=== PATIENT | female | born 1965 | race Caucasian/White ===

== ENCOUNTER 2019-02-21 15:00 | Inpatient (IN) ==
[2019-02-21] MEDS ORDERED: SODIUM CHLORIDE 0.9% 4,100 ML IV ONE (15:33)
[2019-02-21] MEDS ORDERED: ALBUTEROL NEB SOLN 5 MG/ML 20 ML/BOTTLE CONT NEB STA (15:34)
[2019-02-21 15:47] LABS: Basophils % 0.1 % (0.0-0.8); Hematocrit 47.4 VOL% (35.7-47.0); Hemoglobin 15.7 GM/DL (12.0-16.0); Immature Granulocytes % 2.1 %; Immature Granulocytes Absolute 0.58 #; Lymphocytes # 1.5 10*3/uL (1.4-4.0); Lymphocytes % 5.5 % (21.3-54.2); Mean Corpuscular HGB Conc 33.1 GM/DL (32-36); Mean Corpuscular Volume 92.9 FL (87-102); Mean Platelet Volume 10.3 FL (9.6-12.0); Monocytes % 3.4 % (1.7-12.7); NRBC # 0.03 10*3/uL; Neutrophils % 88.9 % (38.7-73.9); Platelet Count 162 T/CUMM (130-400); Red Cell Distribution Width 13.6 % (9.3-17.3); White Blood Count 27.4 T/CUMM (4-12)
[2019-02-21] MEDS ORDERED: PROPOFOL 1,000 MG/100 ML BOTTLE IV ONE (15:52)
[2019-02-21 15:55] LABS: PT Patient Result 10.6 SECS; Partial Thromboplastin Time 28.2 SECS (0-40)
[2019-02-21] MEDS: PROPOFOL 1,000 MG/100 ML BOTTLE IV SCH ×3 (16:00→22:05)
[2019-02-21] MEDS ORDERED: ACETAMINOPHEN 650 MG SUPP RECTAL STA (16:00)
[2019-02-21 16:06] LABS: Alanine Aminotransferase 21 U/L (13-56); Albumin 2.4 G/DL (3.4-5.0); Alkaline Phosphatase 102 U/L (45-117); Aspartate Amino Transferase 21 U/L (0-37); Blood Urea Nitrogen 15 MG/DL (7-18); Calcium 8.8 MG/DL (8.5-10.1); Glucose 330 MG/DL (74-106); Total Protein 6.9 G/DL (6.4-8.3)
[2019-02-21] MEDS ORDERED: methylPREDNISolone SOD SUC 125 MG/2 ML VIAL IV STA (16:14)
[2019-02-21] MEDS ORDERED: VANCOMYCIN INJ 1,000 MG in SODIUM CHLORIDE 0.9% 250 ML IV STA (16:14)
[2019-02-21 16:28] LABS: Band Neutrophils 7 % (0-10); Eosinophils 2 % (0-10); Lymphocytes 7 % (20-55); Segmented Neutrophils 81 % (50-85)
[2019-02-21 16:29] LABS: Hypersegmented Neutrophil SLIGHT; Tear Drop Cells Slight
[2019-02-21 16:30] LABS: Platelet Estimate Decreased; Total Cells Counted 100
[2019-02-21] MEDS ORDERED: VECURONIUM 10 MG VIAL IV ONE (16:35)
[2019-02-21] MEDS ORDERED: ETOMIDATE 20 MG/10 ML VIAL IV ONE (16:35)
[2019-02-21] MEDS ORDERED: MIDAZOLAM 10 MG/2 ML VIAL ONE ×2 (16:39→17:39)
[2019-02-21] MEDS ORDERED: MIDAZOLAM 10 MG/2 ML VIAL IV STA ×2 (16:40→17:41)
[2019-02-21 16:43] LABS: ABG Base Excess -5.5 MMOL/L (-2.5-2.5); ABG HCO3 19.8 MMOL/L (20-26); ABG Oxygen Saturation 91.2 % (95-100); ABG PCO2 45.2 MM HG (35-48); ABG PH 7.286 (7.35-7.45); ABG PO2 72.5 MM HG (80-95); ABG TCO2 18.5 MMOL/L (23-27)
[2019-02-21 16:46] LABS: Apearance,Urine Slightly Hazy (Clear); Bilirubin,Urine Negative (Negative); Blood, Urine Small mg/dL (Negative); Glucose,Urine (UA) >=500 mg/dL (Negative); Ketones,Urine 20 mg/dL (Negative); Nitrite,Urine Negative (Negative); Protein,Urine >=500 MG/DL; RBC,Urine 1 /HPF (0-4); Squamous Epithelial Cell,Urine Occasional /HPF (0-10); Urine Color Yellow (Yellow); Urine Specific Gravity 1.033 (1.001-1.035); Urine Urobilinogen < 2.0 EU/DL (0.2-1.0); WBC,Urine 1 /HPF (0-6)
[2019-02-21 16:53] LABS: Barbiturates Screen,Urine Negative (Negative); Benzodiazepines Screen,Urine Negative (Negative); Cannabinoid Screen,Urine Negative (Negative); Opiate Screen,Urine Negative (Negative); Phencyclidine Screen,Urine Negative (Negative)
[2019-02-21] MEDS ORDERED: ONDANSETRON 4 MG/2 ML VIAL IV PRN (17:11)
[2019-02-21] MEDS ORDERED: DEXTROSE 50% 25 GM/50 ML VIAL IV PRN (17:17)
[2019-02-21] MEDS ORDERED: GLUCAGON 1 MG VIAL IM PRN (17:17)
[2019-02-21] MEDS ORDERED: POTASSIUM CHLORIDE RIDER 10 MEQ in PREMIX 1 EACH IV PRN (17:21)
[2019-02-21] MEDS ORDERED: ALBUTEROL 1.25 MG/3 ML NEB RESP TX PRN (17:26)
[2019-02-21] MEDS: PIPERACILLIN/TAZOBACTAM 3,375 MG in SODIUM CHLORIDE 0.9% 100 ML IV SCH ×2 (17:54→23:45)
[2019-02-21] MEDS: MIDAZOLAM 100 MG in SODIUM CHLORIDE 0.9% 80 ML IV PRN (18:01)
[2019-02-21] MEDS: ALBUTEROL/IPRATROPIUM 3 ML NEB RESP TX SCH (19:35)
[2019-02-21] MEDS: LEVOFLOXACIN INJ 750 MG in PREMIX 1 EACH IV SCH (19:50)
[2019-02-21] MEDS: carBAMazepine 200 MG TABLET PER TUBE SCH (20:22)
[2019-02-21] MEDS: methylPREDNISolone SOD SUC 125 MG/2 ML VIAL IV SCH ×2 (20:25→23:44)
[2019-02-21] MEDS: ENOXAPARIN 40 MG/0.4 ML SYRINGE SUBCUT SCH (20:25)
[2019-02-21 20:28] LABS: ABG Oxygen Saturation 93.4 % (95-100); ABG PCO2 35.5 MM HG (35-48); ABG PH 7.304 (7.35-7.45); ABG PO2 78.1 MM HG (80-95); ABG TCO2 15.5 MMOL/L (23-27); Allen Test Positive; Pt O2 Delivery Device Ventilator
[2019-02-21] MEDS: INSULIN REGULAR 100 UNIT/ML SUBCUT SCH ×2 (20:32→23:45)
[2019-02-21] MEDS: POTASSIUM CHLORIDE RIDER 10 MEQ in PREMIX 1 EACH IV SCH ×3 (20:40→23:11)
[2019-02-21] MEDS ORDERED: carBAMazepine CHEW 100 MG TABLET PO SCH (21:00)
[2019-02-21] MEDS ORDERED: NOREPINEPHRINE 8 MG in SODIUM CHLORIDE 0.9% 242 ML IV PRN (21:49)
[2019-02-22] MEDS: ALBUTEROL/IPRATROPIUM 3 ML NEB RESP TX SCH ×4 (00:05→19:24)
[2019-02-22] MEDS: POTASSIUM CHLORIDE RIDER 10 MEQ in PREMIX 1 EACH IV SCH (00:12)
[2019-02-22] MEDS: PROPOFOL 1,000 MG/100 ML BOTTLE IV SCH ×8 (00:27→22:34)
[2019-02-22] MEDS: SODIUM CHLORIDE 0.9% 1,000 ML IV SCH ×3 (00:28→20:04)
[2019-02-22 04:51] LABS: ABG Base Excess -6.2 MMOL/L (-2.5-2.5); ABG HCO3 17.7 MMOL/L (20-26); ABG PCO2 30.7 MM HG (35-48); ABG PH 7.379 (7.35-7.45); ABG PO2 85.2 MM HG (80-95); ABG TCO2 18.7 MMOL/L (23-27); Allen Test Positive; Pt O2 Delivery Device Ventilator
[2019-02-22 05:06] LABS: Basophils # 0.2 10*3/uL (0.0-0.2); Basophils % 0.5 % (0.0-0.8); Hematocrit 40.3 VOL% (35.7-47.0); Hemoglobin 12.8 GM/DL (12.0-16.0); Immature Granulocytes % 3.3 %; Immature Granulocytes Absolute 1.09 #; Lymphocytes # 2.5 10*3/uL (1.4-4.0); Lymphocytes % 7.4 % (21.3-54.2); Mean Corpuscular HGB Conc 31.8 GM/DL (32-36); Mean Corpuscular Volume 96.9 FL (87-102); Mean Platelet Volume 10.7 FL (9.6-12.0); Monocytes % 2.4 % (1.7-12.7); NRBC # 0.03 10*3/uL; Neutrophils % 86.4 % (38.7-73.9); Platelet Count 171 T/CUMM (130-400); Red Blood Count 4.16 MC/CUMM (3.8-5.5); Red Cell Distribution Width 14.3 % (9.3-17.3); White Blood Count 33.2 T/CUMM (4-12)
[2019-02-22 05:36] LABS: Calcium 7.9 MG/DL (8.5-10.1); Osmolality,Calculated 294.5 MOS/KG (273-304)
[2019-02-22 05:55] LABS: Band Neutrophils 7 % (0-10); Lymphocytes 8 % (20-55); Segmented Neutrophils 82 % (50-85); Total Cells Counted 100
[2019-02-22 05:56] LABS: Anisocytosis 1+; Platelet Estimate Adequate
[2019-02-22] MEDS: INSULIN REGULAR 100 UNIT/ML SUBCUT SCH ×3 (06:27→18:40)
[2019-02-22] MEDS: methylPREDNISolone SOD SUC 125 MG/2 ML VIAL IV SCH ×3 (06:27→17:17)
[2019-02-22] MEDS: LEVOTHYROXINE 100 MCG VIAL IV SCH (06:28)
[2019-02-22] MEDS: MIDAZOLAM 100 MG in SODIUM CHLORIDE 0.9% 80 ML IV PRN (09:41)
[2019-02-22] MEDS: PIPERACILLIN/TAZOBACTAM 3,375 MG in SODIUM CHLORIDE 0.9% 100 ML IV SCH ×2 (11:19→18:40)
[2019-02-22] MEDS: carBAMazepine 200 MG TABLET PER TUBE SCH ×4 (11:20→21:35)
[2019-02-22] MEDS: PANTOPRAZOLE 40 MG VIAL IV SCH (11:21)
[2019-02-22] MEDS: ENOXAPARIN 40 MG/0.4 ML SYRINGE SUBCUT SCH (17:16)
[2019-02-22] MEDS: LEVOFLOXACIN INJ 750 MG in PREMIX 1 EACH IV SCH (17:16)
[2019-02-23] MEDS: PIPERACILLIN/TAZOBACTAM 3,375 MG in SODIUM CHLORIDE 0.9% 100 ML IV SCH ×2 (00:32→09:49)
[2019-02-23] MEDS: methylPREDNISolone SOD SUC 125 MG/2 ML VIAL IV SCH ×5 (00:32→23:37)
[2019-02-23] MEDS: INSULIN REGULAR 100 UNIT/ML SUBCUT SCH ×5 (00:32→23:38)
[2019-02-23] MEDS: SODIUM CHLORIDE 0.9% 1,000 ML IV SCH ×2 (00:33→12:01)
[2019-02-23] MEDS: ALBUTEROL/IPRATROPIUM 3 ML NEB RESP TX SCH ×4 (01:23→19:08)
[2019-02-23] MEDS: ACETAMINOPHEN 325 MG TABLET PO PRN (02:15)
[2019-02-23] MEDS: PROPOFOL 1,000 MG/100 ML BOTTLE IV SCH ×6 (03:48→22:18)
[2019-02-23 04:30] LABS: Allen Test Positive; Pt O2 Delivery Device Ventilator
[2019-02-23 04:31] LABS: ABG Base Excess -9.2 MMOL/L (-2.5-2.5); ABG HCO3 17.1 MMOL/L (20-26); ABG Oxygen Saturation 99.5 % (95-100); ABG PCO2 30.3 MM HG (35-48); ABG PH 7.325 (7.35-7.45); ABG TCO2 14.2 MMOL/L (23-27)
[2019-02-23] MEDS: LEVOTHYROXINE 100 MCG VIAL IV SCH (06:51)
[2019-02-23] MEDS: MIDAZOLAM 100 MG in SODIUM CHLORIDE 0.9% 80 ML IV PRN (06:52)
[2019-02-23 09:29] LABS: Calcium 7.2 MG/DL (8.5-10.1); Osmolality,Calculated 299.7 MOS/KG (273-304)
[2019-02-23] MEDS: carBAMazepine 200 MG TABLET PER TUBE SCH ×4 (09:49→20:34)
[2019-02-23] MEDS: PANTOPRAZOLE 40 MG VIAL IV SCH (09:49)
[2019-02-23] MEDS: INSULIN GLARGINE 100 UNIT/ML SUBCUT SCH (09:49)
[2019-02-23] MEDS: MEROPENEM 500 MG in SODIUM CHLORIDE 0.9% 100 ML IV SCH ×2 (11:02→23:37)
[2019-02-23] MEDS ORDERED: SODIUM POLYSTYRENE SULFATE 15 GM/60 ML BOTTLE PER TUBE ONE (11:42)
[2019-02-23] MEDS ORDERED: SODIUM BICARBONATE 50 MEQ/50 ML VIAL IV ONE (15:47)
[2019-02-23] MEDS: SODIUM BICARB INJ 50 MEQ in SODIUM CHLORIDE 0.45% 1,000 ML IV SCH (17:30)
[2019-02-23] MEDS: ENOXAPARIN 40 MG/0.4 ML SYRINGE SUBCUT SCH (17:31)
[2019-02-23] MEDS ORDERED: PIPERACILLIN/TAZOBACTAM 3,375 MG in SODIUM CHLORIDE 0.9% 100 ML IV SCH (20:00)
[2019-02-24] MEDS: ALBUTEROL/IPRATROPIUM 3 ML NEB RESP TX SCH ×4 (00:39→18:49)
[2019-02-24] MEDS: SODIUM BICARB INJ 50 MEQ in SODIUM CHLORIDE 0.45% 1,000 ML IV SCH ×2 (01:42→13:16)
[2019-02-24] MEDS: PROPOFOL 1,000 MG/100 ML BOTTLE IV SCH ×7 (01:44→23:51)
[2019-02-24] MEDS: MIDAZOLAM 100 MG in SODIUM CHLORIDE 0.9% 80 ML IV PRN ×2 (02:01→20:45)
[2019-02-24 03:34] LABS: Allen Test Positive; Pt O2 Delivery Device Ventilator
[2019-02-24 03:43] LABS: ABG Base Excess -11.9 MMOL/L (-2.5-2.5); ABG HCO3 15.2 MMOL/L (20-26); ABG Oxygen Saturation 98.6 % (95-100); ABG PCO2 29.8 MM HG (35-48); ABG PH 7.277 (7.35-7.45); ABG TCO2 12.6 MMOL/L (23-27)
[2019-02-24] MEDS: methylPREDNISolone SOD SUC 125 MG/2 ML VIAL IV SCH ×4 (05:20→23:28)
[2019-02-24] MEDS: INSULIN REGULAR 100 UNIT/ML SUBCUT SCH ×4 (05:25→23:33)
[2019-02-24 05:27] LABS: Calcium 6.3 MG/DL (8.5-10.1); Osmolality,Calculated 310.5 MOS/KG (273-304)
[2019-02-24] MEDS: LEVOTHYROXINE 100 MCG VIAL IV SCH (05:30)
[2019-02-24] MEDS: PANTOPRAZOLE 40 MG VIAL IV SCH (09:26)
[2019-02-24] MEDS: carBAMazepine 200 MG TABLET PER TUBE SCH ×4 (09:27→20:36)
[2019-02-24] MEDS: INSULIN GLARGINE 100 UNIT/ML SUBCUT SCH (09:27)
[2019-02-24 09:52] LABS: Hepatitis B Core IgM Quant 0.05 Index; Hepatitis B Surface Ag Quant < 0.10 Index; Hepatitis B Surface Ag Result Negative (Negative); Hepatitis C Virus Ab Quant 0.05 Index; Hepatitis C Virus Ab Result Negative (Negative)
[2019-02-24] MEDS ORDERED: HEPARIN 10,000 UNIT/10 ML VIAL IV SCH (12:30)
[2019-02-24] MEDS: ENOXAPARIN 30 MG/0.3 ML SYRINGE SUBCUT SCH (17:38)
[2019-02-24] MEDS: FLUCONAZOLE INJ 200 MG in PREMIX 1 EACH IV SCH (17:39)
[2019-02-24] MEDS: LEVOFLOXACIN INJ 750 MG in PREMIX 1 EACH IV SCH (17:39)
[2019-02-24] MEDS: MEROPENEM 500 MG in SODIUM CHLORIDE 0.9% 100 ML IV SCH (23:30)
[2019-02-25] MEDS: ALBUTEROL/IPRATROPIUM 3 ML NEB RESP TX SCH ×4 (01:04→20:55)
[2019-02-25 02:43] LABS: ABG Base Excess -8.6 MMOL/L (-2.5-2.5); ABG HCO3 17.5 MMOL/L (20-26); ABG Oxygen Saturation 93.8 % (95-100); ABG PCO2 30.7 MM HG (35-48); ABG PH 7.332 (7.35-7.45); ABG PO2 81.2 MM HG (80-95); ABG TCO2 14.6 MMOL/L (23-27); Allen Test Positive; Pt O2 Delivery Device Ventilator
[2019-02-25] MEDS: PROPOFOL 1,000 MG/100 ML BOTTLE IV SCH ×7 (03:54→23:45)
[2019-02-25] MEDS: LEVOTHYROXINE 100 MCG VIAL IV SCH (05:57)
[2019-02-25] MEDS: SODIUM BICARB INJ 50 MEQ in SODIUM CHLORIDE 0.45% 1,000 ML IV SCH (05:57)
[2019-02-25] MEDS: INSULIN REGULAR 100 UNIT/ML SUBCUT SCH ×4 (05:57→23:45)
[2019-02-25] MEDS: methylPREDNISolone SOD SUC 125 MG/2 ML VIAL IV SCH ×4 (05:57→23:44)
[2019-02-25 06:17] LABS: Basophils # 0.1 10*3/uL (0.0-0.2); Basophils % 0.4 % (0.0-0.8); Hematocrit 33.8 VOL% (35.7-47.0); Hemoglobin 10.8 GM/DL (12.0-16.0); Immature Granulocytes % 5.8 %; Immature Granulocytes Absolute 0.87 #; Lymphocytes # 1.2 10*3/uL (1.4-4.0); Lymphocytes % 8.3 % (21.3-54.2); Mean Platelet Volume 11.6 FL (9.6-12.0); Monocytes % 4.1 % (1.7-12.7); NRBC # 0.07 10*3/uL; Neutrophils % 81.4 % (38.7-73.9); Platelet Count 168 T/CUMM (130-400); Red Blood Count 3.52 MC/CUMM (3.8-5.5); Red Cell Distribution Width 14.5 % (9.3-17.3); White Blood Count 14.9 T/CUMM (4-12)
[2019-02-25 06:40] LABS: Calcium 6.9 MG/DL (8.5-10.1)
[2019-02-25 06:43] LABS: Band Neutrophils 4 % (0-10); Lymphocytes 10 % (20-55); Metamyelocytes 6 %; Segmented Neutrophils 77 % (50-85); Total Cells Counted 100
[2019-02-25 06:45] LABS: Platelet Estimate Normal; Polychromasia Few
[2019-02-25] MEDS: INSULIN GLARGINE 100 UNIT/ML SUBCUT SCH (08:53)
[2019-02-25] MEDS: carBAMazepine 200 MG TABLET PER TUBE SCH ×4 (08:54→20:15)
[2019-02-25] MEDS: PANTOPRAZOLE 40 MG VIAL IV SCH (08:54)
[2019-02-25] MEDS: MIDAZOLAM 100 MG in SODIUM CHLORIDE 0.9% 80 ML IV PRN (16:30)
[2019-02-25] MEDS: FLUCONAZOLE INJ 200 MG in PREMIX 1 EACH IV SCH (17:44)
[2019-02-25] MEDS: ENOXAPARIN 30 MG/0.3 ML SYRINGE SUBCUT SCH (17:44)
[2019-02-25] MEDS: MEROPENEM 500 MG in SODIUM CHLORIDE 0.9% 100 ML IV SCH (23:44)
[2019-02-26] MEDS: ALBUTEROL/IPRATROPIUM 3 ML NEB RESP TX SCH ×4 (02:26→19:46)
[2019-02-26 03:06] LABS: ABG Base Excess -7.9 MMOL/L (-2.5-2.5); ABG Oxygen Saturation 96.9 % (95-100); ABG PCO2 30.2 MM HG (35-48); ABG PH 7.348 (7.35-7.45); ABG TCO2 14.9 MMOL/L (23-27); Allen Test Positive; Pt O2 Delivery Device Ventilator
[2019-02-26] MEDS: PROPOFOL 1,000 MG/100 ML BOTTLE IV SCH ×5 (03:26→20:40)
[2019-02-26 04:53] LABS: Basophils # 0.1 10*3/uL (0.0-0.2); Basophils % 0.4 % (0.0-0.8); Calcium 6.9 MG/DL (8.5-10.1); Hematocrit 34.4 VOL% (35.7-47.0); Hemoglobin 11.3 GM/DL (12.0-16.0); Immature Granulocytes % 6.5 %; Immature Granulocytes Absolute 1.18 #; Lymphocytes # 0.9 10*3/uL (1.4-4.0); Mean Corpuscular HGB Conc 32.8 GM/DL (32-36); Mean Corpuscular Volume 93.7 FL (87-102); Mean Platelet Volume 11.4 FL (9.6-12.0); NRBC # 0.05 10*3/uL; Neutrophils % 84.1 % (38.7-73.9); Osmolality,Calculated 314.1 MOS/KG (273-304); Platelet Count 218 T/CUMM (130-400); Red Blood Count 3.67 MC/CUMM (3.8-5.5); Red Cell Distribution Width 14.4 % (9.3-17.3); White Blood Count 18.3 T/CUMM (4-12)
[2019-02-26] MEDS: LEVOTHYROXINE 100 MCG VIAL IV SCH (05:47)
[2019-02-26] MEDS: methylPREDNISolone SOD SUC 125 MG/2 ML VIAL IV SCH (05:47)
[2019-02-26] MEDS: INSULIN REGULAR 100 UNIT/ML SUBCUT SCH ×3 (05:47→19:43)
[2019-02-26 05:57] LABS: Band Neutrophils 1 % (0-10); Lymphocytes 3 % (20-55); Platelet Estimate Adequate; Segmented Neutrophils 93 % (50-85); Total Cells Counted 100
[2019-02-26] MEDS: carBAMazepine 200 MG TABLET PER TUBE SCH ×4 (08:44→21:04)
[2019-02-26] MEDS: PANTOPRAZOLE 40 MG VIAL IV SCH (08:44)
[2019-02-26] MEDS: INSULIN GLARGINE 100 UNIT/ML SUBCUT SCH ×2 (08:44→21:04)
[2019-02-26] MEDS: MIDAZOLAM 100 MG in SODIUM CHLORIDE 0.9% 80 ML IV PRN (09:45)
[2019-02-26] MEDS: fentaNYL INJ 1,250 MCG in SODIUM CHLORIDE 0.9% 225 ML IV PRN ×2 (10:45→20:00)
[2019-02-26] MEDS: FLUCONAZOLE INJ 200 MG in PREMIX 1 EACH IV SCH (17:05)
[2019-02-26] MEDS: LEVOFLOXACIN INJ 750 MG in PREMIX 1 EACH IV SCH (17:10)
[2019-02-26] MEDS: ENOXAPARIN 30 MG/0.3 ML SYRINGE SUBCUT SCH (17:15)
[2019-02-26] MEDS: methylPREDNISolone SOD SUC 40 MG/1 ML VIAL IV SCH (19:28)
[2019-02-26] MEDS: MEROPENEM 500 MG in SODIUM CHLORIDE 0.9% 100 ML IV SCH (23:00)
[2019-02-27] MEDS: PROPOFOL 1,000 MG/100 ML BOTTLE IV SCH ×8 (01:00→21:50)
[2019-02-27] MEDS: ALBUTEROL/IPRATROPIUM 3 ML NEB RESP TX SCH ×4 (01:10→19:05)
[2019-02-27 05:08] LABS: ABG PCO2 48.9 MM HG (35-48); ABG PH 7.269 (7.35-7.45)
[2019-02-27 05:09] LABS: ABG Base Excess -5.3 MMOL/L (-2.5-2.5); ABG HCO3 21.9 MMOL/L (20-26); ABG Oxygen Saturation 94.5 % (95-100); ABG PO2 87.9 MM HG (80-95); ABG TCO2 23.4 MMOL/L (23-27)
[2019-02-27] MEDS: methylPREDNISolone SOD SUC 40 MG/1 ML VIAL IV SCH ×2 (05:30→16:45)
[2019-02-27] MEDS: LEVOTHYROXINE 100 MCG VIAL IV SCH (05:32)
[2019-02-27] MEDS: fentaNYL INJ 1,250 MCG in SODIUM CHLORIDE 0.9% 225 ML IV PRN ×2 (05:50→16:09)
[2019-02-27 06:13] LABS: Osmolality,Calculated 300.8 MOS/KG (273-304)
[2019-02-27] MEDS: INSULIN REGULAR 100 UNIT/ML SUBCUT SCH ×4 (06:39→18:07)
[2019-02-27 07:21] LABS: Basophils # 0.1 10*3/uL (0.0-0.2); Basophils % 0.5 % (0.0-0.8); Eosinophils % 0.2 % (0.00-10.9); Hematocrit 34.3 VOL% (35.7-47.0); Immature Granulocytes % 9.1 %; Immature Granulocytes Absolute 1.55 #; Lymphocytes # 1.6 10*3/uL (1.4-4.0); Lymphocytes % 9.2 % (21.3-54.2); Mean Corpuscular HGB Conc 32.1 GM/DL (32-36); Mean Corpuscular Volume 95.8 FL (87-102); Mean Platelet Volume 10.6 FL (9.6-12.0); Monocytes % 5.3 % (1.7-12.7); NRBC # 0.04 10*3/uL; Neutrophils % 75.7 % (38.7-73.9); Platelet Count 301 T/CUMM (130-400); Red Blood Count 3.58 MC/CUMM (3.8-5.5); Red Cell Distribution Width 14.4 % (9.3-17.3)
[2019-02-27 07:51] LABS: Band Neutrophils 1 % (0-10); Lymphocytes 10 % (20-55); Myelocytes 1 %; Nucleated Red Blood Cells 1 (0-5); Platelet Estimate Adequate; Segmented Neutrophils 82 % (50-85); Total Cells Counted 100
[2019-02-27] MEDS: INSULIN GLARGINE 100 UNIT/ML SUBCUT SCH ×2 (08:34→20:56)
[2019-02-27] MEDS: carBAMazepine 200 MG TABLET PER TUBE SCH ×4 (08:34→20:56)
[2019-02-27] MEDS: PANTOPRAZOLE 40 MG VIAL IV SCH (08:35)
[2019-02-27] MEDS: FLUCONAZOLE INJ 200 MG in PREMIX 1 EACH IV SCH (16:45)
[2019-02-27] MEDS: ENOXAPARIN 30 MG/0.3 ML SYRINGE SUBCUT SCH (16:45)
[2019-02-28] MEDS: MEROPENEM 500 MG in SODIUM CHLORIDE 0.9% 100 ML IV SCH ×2 (00:19→22:30)
[2019-02-28] MEDS: INSULIN REGULAR 100 UNIT/ML SUBCUT SCH ×5 (00:37→23:21)
[2019-02-28] MEDS: PROPOFOL 1,000 MG/100 ML BOTTLE IV SCH ×9 (00:54→22:10)
[2019-02-28] MEDS: fentaNYL INJ 1,250 MCG in SODIUM CHLORIDE 0.9% 225 ML IV PRN ×3 (01:17→19:59)
[2019-02-28] MEDS: ALBUTEROL/IPRATROPIUM 3 ML NEB RESP TX SCH ×5 (01:25→20:10)
[2019-02-28 03:54] LABS: ABG Base Excess -3.9 MMOL/L (-2.5-2.5); ABG HCO3 21.1 MMOL/L (20-26); ABG Oxygen Saturation 98.2 % (95-100); ABG PCO2 47.9 MM HG (35-48); ABG PH 7.287 (7.35-7.45); ABG TCO2 20.9 MMOL/L (23-27); Allen Test Positive; Pt O2 Delivery Device Ventilator
[2019-02-28] MEDS: methylPREDNISolone SOD SUC 40 MG/1 ML VIAL IV SCH ×2 (04:50→17:35)
[2019-02-28 05:01] LABS: Basophils # 0.1 10*3/uL (0.0-0.2); Basophils % 0.5 % (0.0-0.8); Eosinophils # 0.1 10*3/uL (0.0-0.87); Eosinophils % 0.5 % (0.00-10.9); Hematocrit 33.9 VOL% (35.7-47.0); Hemoglobin 10.8 GM/DL (12.0-16.0); Immature Granulocytes Absolute 1.66 #; Lymphocytes # 1.7 10*3/uL (1.4-4.0); Lymphocytes % 11.1 % (21.3-54.2); Mean Corpuscular HGB Conc 31.9 GM/DL (32-36); Mean Corpuscular Volume 96.3 FL (87-102); Mean Platelet Volume 9.9 FL (9.6-12.0); Monocytes % 4.4 % (1.7-12.7); NRBC # 0.03 10*3/uL; Neutrophils % 72.5 % (38.7-73.9); Platelet Count 329 T/CUMM (130-400); Red Blood Count 3.52 MC/CUMM (3.8-5.5); Red Cell Distribution Width 14.5 % (9.3-17.3); White Blood Count 15.1 T/CUMM (4-12)
[2019-02-28 05:21] LABS: Calcium 6.8 MG/DL (8.5-10.1)
[2019-02-28 05:22] LABS: Band Neutrophils 1 % (0-10); Lymphocytes 10 % (20-55); Segmented Neutrophils 87 % (50-85); Total Cells Counted 100
[2019-02-28 05:23] LABS: Platelet Estimate Normal; Polychromasia Few
[2019-02-28] MEDS: LEVOTHYROXINE 100 MCG VIAL IV SCH (05:53)
[2019-02-28] MEDS ORDERED: DEXTROSE 50% 25 GM/50 ML SYRINGE IV PRN (08:00)
[2019-02-28] MEDS: INSULIN GLARGINE 100 UNIT/ML SUBCUT SCH ×2 (09:55→20:09)
[2019-02-28] MEDS: PANTOPRAZOLE 40 MG VIAL IV SCH (09:55)
[2019-02-28] MEDS: carBAMazepine 200 MG TABLET PER TUBE SCH ×4 (09:55→20:10)
[2019-02-28] MEDS: FLUCONAZOLE INJ 200 MG in PREMIX 1 EACH IV SCH (16:08)
[2019-02-28] MEDS: LEVOFLOXACIN INJ 750 MG in PREMIX 1 EACH IV SCH (17:35)
[2019-02-28] MEDS: ENOXAPARIN 30 MG/0.3 ML SYRINGE SUBCUT SCH (17:35)
[2019-03-01] MEDS: ALBUTEROL/IPRATROPIUM 3 ML NEB RESP TX SCH ×4 (00:20→19:39)
[2019-03-01] MEDS: fentaNYL INJ 1,250 MCG in SODIUM CHLORIDE 0.9% 225 ML IV PRN ×2 (00:49→05:39)
[2019-03-01] MEDS: PROPOFOL 1,000 MG/100 ML BOTTLE IV SCH ×8 (00:59→21:15)
[2019-03-01 03:12] LABS: Allen Test Positive; Pt O2 Delivery Device Ventilator
[2019-03-01 03:14] LABS: ABG Base Excess -4.2 MMOL/L (-2.5-2.5); ABG HCO3 20.9 MMOL/L (20-26); ABG PCO2 42.8 MM HG (35-48); ABG PH 7.316 (7.35-7.45); ABG TCO2 20.1 MMOL/L (23-27)
[2019-03-01] MEDS: INSULIN REGULAR 100 UNIT/ML SUBCUT SCH ×4 (05:03→23:21)
[2019-03-01] MEDS: LEVOTHYROXINE 100 MCG VIAL IV SCH (05:39)
[2019-03-01] MEDS: methylPREDNISolone SOD SUC 40 MG/1 ML VIAL IV SCH ×2 (05:39→17:42)
[2019-03-01] MEDS: INSULIN GLARGINE 100 UNIT/ML SUBCUT SCH ×2 (09:39→20:02)
[2019-03-01] MEDS: PANTOPRAZOLE 40 MG VIAL IV SCH (09:40)
[2019-03-01] MEDS: carBAMazepine 200 MG TABLET PER TUBE SCH ×4 (09:40→20:02)
[2019-03-01] MEDS: fentaNYL INJ 2,500 MCG in SODIUM CHLORIDE 0.9% 200 ML IV PRN (10:41)
[2019-03-01] MEDS: FLUCONAZOLE INJ 200 MG in PREMIX 1 EACH IV SCH (15:47)
[2019-03-01] MEDS: ENOXAPARIN 30 MG/0.3 ML SYRINGE SUBCUT SCH (17:42)
[2019-03-01] MEDS: MEROPENEM 500 MG in SODIUM CHLORIDE 0.9% 100 ML IV SCH (23:21)
[2019-03-02] MEDS: PROPOFOL 1,000 MG/100 ML BOTTLE IV SCH ×7 (00:01→23:40)
[2019-03-02] MEDS: ALBUTEROL/IPRATROPIUM 3 ML NEB RESP TX SCH ×4 (01:17→19:20)
[2019-03-02 04:10] LABS: ABG Base Excess -8.3 MMOL/L (-2.5-2.5); ABG HCO3 17.9 MMOL/L (20-26); ABG Oxygen Saturation 94.1 % (95-100); ABG PH 7.297 (7.35-7.45); ABG PO2 81.4 MM HG (80-95); ABG TCO2 14.8 MMOL/L (23-27); Allen Test Positive; Pt O2 Delivery Device Ventilator
[2019-03-02 05:28] LABS: Basophils # 0.1 10*3/uL (0.0-0.2); Basophils % 0.4 % (0.0-0.8); Eosinophils % 0.1 % (0.00-10.9); Hematocrit 30.4 VOL% (35.7-47.0); Hemoglobin 9.8 GM/DL (12.0-16.0); Immature Granulocytes % 10.2 %; Immature Granulocytes Absolute 1.63 #; Lymphocytes # 1.3 10*3/uL (1.4-4.0); Lymphocytes % 7.9 % (21.3-54.2); Mean Corpuscular HGB Conc 32.2 GM/DL (32-36); Mean Platelet Volume 9.9 FL (9.6-12.0); Monocytes % 4.1 % (1.7-12.7); Neutrophils % 77.3 % (38.7-73.9); Platelet Count 378 T/CUMM (130-400); Red Cell Distribution Width 14.9 % (9.3-17.3)
[2019-03-02] MEDS: methylPREDNISolone SOD SUC 40 MG/1 ML VIAL IV SCH ×2 (05:30→18:14)
[2019-03-02] MEDS: LEVOTHYROXINE 100 MCG VIAL IV SCH (05:30)
[2019-03-02] MEDS: INSULIN REGULAR 100 UNIT/ML SUBCUT SCH ×4 (05:30→23:40)
[2019-03-02 05:49] LABS: Calcium 6.3 MG/DL (8.5-10.1); Osmolality,Calculated 289.7 MOS/KG (273-304)
[2019-03-02] MEDS: fentaNYL INJ 2,500 MCG in SODIUM CHLORIDE 0.9% 200 ML IV PRN (05:49)
[2019-03-02 06:11] LABS: Band Neutrophils 4 % (0-10); Lymphocytes 8 % (20-55); Metamyelocytes 2 %; Myelocytes 2 %; Segmented Neutrophils 81 % (50-85); Total Cells Counted 100
[2019-03-02 06:12] LABS: Anisocytosis Slight; Microcytosis Slight
[2019-03-02 06:13] LABS: Spherocytes Slight
[2019-03-02 06:14] LABS: Platelet Estimate Normal
[2019-03-02] MEDS: INSULIN GLARGINE 100 UNIT/ML SUBCUT SCH ×2 (09:05→21:25)
[2019-03-02] MEDS: PANTOPRAZOLE 40 MG VIAL IV SCH (09:07)
[2019-03-02] MEDS: carBAMazepine 200 MG TABLET PER TUBE SCH ×4 (09:09→21:25)
[2019-03-02] MEDS: ENOXAPARIN 30 MG/0.3 ML SYRINGE SUBCUT SCH (17:15)
[2019-03-02] MEDS: FLUCONAZOLE INJ 200 MG in PREMIX 1 EACH IV SCH (18:15)
[2019-03-02] MEDS: LEVOFLOXACIN INJ 750 MG in PREMIX 1 EACH IV SCH (18:15)
[2019-03-02] MEDS: MEROPENEM 500 MG in SODIUM CHLORIDE 0.9% 100 ML IV SCH (22:49)
[2019-03-03] MEDS: ALBUTEROL/IPRATROPIUM 3 ML NEB RESP TX SCH ×4 (01:01→19:50)
[2019-03-03] MEDS: fentaNYL INJ 2,500 MCG in SODIUM CHLORIDE 0.9% 200 ML IV PRN ×2 (01:42→21:56)
[2019-03-03] MEDS: PROPOFOL 1,000 MG/100 ML BOTTLE IV SCH ×5 (03:40→21:25)
[2019-03-03 04:16] LABS: ABG Base Excess -2.9 MMOL/L (-2.5-2.5); ABG Oxygen Saturation 97.1 % (95-100); ABG PCO2 37.9 MM HG (35-48); ABG PH 7.372 (7.35-7.45); ABG PO2 98.1 MM HG (80-95); ABG TCO2 20.2 MMOL/L (23-27); Pt O2 Delivery Device Ventilator
[2019-03-03] MEDS: INSULIN REGULAR 100 UNIT/ML SUBCUT SCH ×4 (05:45→23:52)
[2019-03-03] MEDS: methylPREDNISolone SOD SUC 40 MG/1 ML VIAL IV SCH ×2 (05:45→17:30)
[2019-03-03] MEDS: LEVOTHYROXINE 100 MCG VIAL IV SCH (05:48)
[2019-03-03] MEDS: PANTOPRAZOLE 40 MG VIAL IV SCH (08:39)
[2019-03-03] MEDS: carBAMazepine 200 MG TABLET PER TUBE SCH ×4 (08:40→21:55)
[2019-03-03] MEDS: INSULIN GLARGINE 100 UNIT/ML SUBCUT SCH ×2 (08:41→21:44)
[2019-03-03] MEDS: FLUCONAZOLE INJ 200 MG in PREMIX 1 EACH IV SCH (16:30)
[2019-03-03] MEDS: ENOXAPARIN 30 MG/0.3 ML SYRINGE SUBCUT SCH (17:30)
[2019-03-03] MEDS: MEROPENEM 500 MG in SODIUM CHLORIDE 0.9% 100 ML IV SCH (23:53)
[2019-03-04] MEDS: ALBUTEROL/IPRATROPIUM 3 ML NEB RESP TX SCH ×4 (00:20→19:40)
[2019-03-04] MEDS: PROPOFOL 1,000 MG/100 ML BOTTLE IV SCH ×6 (02:29→22:03)
[2019-03-04 04:51] LABS: ABG Base Excess -6.9 MMOL/L (-2.5-2.5); ABG HCO3 18.8 MMOL/L (20-26); ABG Oxygen Saturation 97.3 % (95-100); ABG PCO2 37.7 MM HG (35-48); ABG PH 7.307 (7.35-7.45); ABG TCO2 17.4 MMOL/L (23-27)
[2019-03-04] MEDS: methylPREDNISolone SOD SUC 40 MG/1 ML VIAL IV SCH ×2 (05:26→17:22)
[2019-03-04 05:38] LABS: Basophils # 0.1 10*3/uL (0.0-0.2); Basophils % 0.6 % (0.0-0.8); Hematocrit 28.8 VOL% (35.7-47.0); Hemoglobin 9.3 GM/DL (12.0-16.0); Immature Granulocytes % 7.7 %; Immature Granulocytes Absolute 1.32 #; Lymphocytes # 1.7 10*3/uL (1.4-4.0); Lymphocytes % 9.8 % (21.3-54.2); Mean Corpuscular HGB Conc 32.3 GM/DL (32-36); Mean Platelet Volume 9.3 FL (9.6-12.0); Monocytes % 5.5 % (1.7-12.7); NRBC # 0.02 10*3/uL; Neutrophils % 76.4 % (38.7-73.9); Platelet Count 379 T/CUMM (130-400); Red Blood Count 3.03 MC/CUMM (3.8-5.5); White Blood Count 17.2 T/CUMM (4-12)
[2019-03-04 06:00] LABS: Calcium 6.5 MG/DL (8.5-10.1); Osmolality,Calculated 292.5 MOS/KG (273-304)
[2019-03-04] MEDS: INSULIN REGULAR 100 UNIT/ML SUBCUT SCH ×4 (06:03→23:46)
[2019-03-04 06:14] LABS: Anisocytosis 1+; Band Neutrophils 5 % (0-10); Lymphocytes 11 % (20-55); Myelocytes 3 %; Platelet Estimate Adequate; Segmented Neutrophils 79 % (50-85); Total Cells Counted 100
[2019-03-04] MEDS: LEVOTHYROXINE 100 MCG VIAL IV SCH (06:27)
[2019-03-04] MEDS: PANTOPRAZOLE 40 MG VIAL IV SCH (10:30)
[2019-03-04] MEDS: INSULIN GLARGINE 100 UNIT/ML SUBCUT SCH ×2 (10:30→20:35)
[2019-03-04] MEDS: carBAMazepine 200 MG TABLET PER TUBE SCH ×4 (10:32→20:35)
[2019-03-04] MEDS: PREGABALIN 75 MG CAPSULE NG SCH ×2 (15:20→20:35)
[2019-03-04] MEDS: CYCLOBENZAPRINE 10 MG TABLET PER TUBE SCH ×2 (15:20→20:35)
[2019-03-04] MEDS: oxyCODONE/ACETAMINOPHEN 5-325 MG TABLET PO PRN (15:20)
[2019-03-04] MEDS: DEXMEDETOMIDINE 200 MCG in SODIUM CHLORIDE 0.9% 48 ML IV PRN ×2 (16:20→19:50)
[2019-03-04] MEDS: ENOXAPARIN 30 MG/0.3 ML SYRINGE SUBCUT SCH (17:23)
[2019-03-04] MEDS: SERTRALINE 100 MG TABLET PER TUBE SCH (20:34)
[2019-03-04] MEDS: fentaNYL INJ 2,500 MCG in SODIUM CHLORIDE 0.9% 200 ML IV PRN (22:51)
[2019-03-05] MEDS: ALBUTEROL/IPRATROPIUM 3 ML NEB RESP TX SCH ×4 (00:57→19:38)
[2019-03-05] MEDS: PROPOFOL 1,000 MG/100 ML BOTTLE IV SCH ×6 (01:30→21:05)
[2019-03-05 05:15] LABS: ABG HCO3 17.1 MMOL/L (20-26); ABG Oxygen Saturation 96.7 % (95-100); ABG TCO2 15.6 MMOL/L (23-27); Allen Test Positive; Pt O2 Delivery Device Ventilator
[2019-03-05] MEDS: methylPREDNISolone SOD SUC 40 MG/1 ML VIAL IV SCH ×2 (05:59→17:48)
[2019-03-05] MEDS: INSULIN REGULAR 100 UNIT/ML SUBCUT SCH ×3 (06:00→17:29)
[2019-03-05] MEDS: LEVOTHYROXINE 100 MCG VIAL IV SCH (06:00)
[2019-03-05] MEDS: PREGABALIN 75 MG CAPSULE NG SCH ×3 (09:25→21:44)
[2019-03-05] MEDS: carBAMazepine 200 MG TABLET PER TUBE SCH ×4 (09:25→21:44)
[2019-03-05] MEDS: CYCLOBENZAPRINE 10 MG TABLET PER TUBE SCH ×3 (09:25→21:44)
[2019-03-05] MEDS: INSULIN GLARGINE 100 UNIT/ML SUBCUT SCH ×2 (09:27→21:44)
[2019-03-05] MEDS: PANTOPRAZOLE 40 MG VIAL IV SCH (09:27)
[2019-03-05] MEDS: ENOXAPARIN 30 MG/0.3 ML SYRINGE SUBCUT SCH (17:48)
[2019-03-05] MEDS: fentaNYL INJ 2,500 MCG in SODIUM CHLORIDE 0.9% 200 ML IV PRN (17:49)
[2019-03-05] MEDS: SERTRALINE 100 MG TABLET PER TUBE SCH (21:44)
[2019-03-06] MEDS: PROPOFOL 1,000 MG/100 ML BOTTLE IV SCH ×8 (00:15→22:45)
[2019-03-06] MEDS: ALBUTEROL/IPRATROPIUM 3 ML NEB RESP TX SCH ×4 (00:37→20:35)
[2019-03-06] MEDS: INSULIN REGULAR 100 UNIT/ML SUBCUT SCH ×4 (00:37→17:48)
[2019-03-06 03:49] LABS: ABG Base Excess -1.8 MMOL/L (-2.5-2.5); ABG HCO3 22.9 MMOL/L (20-26); ABG Oxygen Saturation 97.5 % (95-100); ABG PCO2 33.8 MM HG (35-48); ABG PH 7.424 (7.35-7.45); ABG PO2 95.8 MM HG (80-95); ABG TCO2 20.3 MMOL/L (23-27); Allen Test Positive; Pt O2 Delivery Device Ventilator
[2019-03-06 04:25] LABS: Calcium 6.5 MG/DL (8.5-10.1); Osmolality,Calculated 288.1 MOS/KG (273-304)
[2019-03-06] MEDS: methylPREDNISolone SOD SUC 40 MG/1 ML VIAL IV SCH ×2 (05:16→17:47)
[2019-03-06] MEDS: LEVOTHYROXINE 100 MCG VIAL IV SCH (06:24)
[2019-03-06] MEDS: PANTOPRAZOLE 40 MG VIAL IV SCH (09:11)
[2019-03-06] MEDS: INSULIN GLARGINE 100 UNIT/ML SUBCUT SCH ×2 (09:11→20:32)
[2019-03-06] MEDS: CYCLOBENZAPRINE 10 MG TABLET PER TUBE SCH ×3 (09:13→20:32)
[2019-03-06] MEDS: carBAMazepine 200 MG TABLET PER TUBE SCH ×4 (09:13→20:31)
[2019-03-06] MEDS: PREGABALIN 75 MG CAPSULE NG SCH ×3 (09:13→20:32)
[2019-03-06] MEDS: fentaNYL INJ 2,500 MCG in SODIUM CHLORIDE 0.9% 200 ML IV PRN (16:27)
[2019-03-06] MEDS: ENOXAPARIN 30 MG/0.3 ML SYRINGE SUBCUT SCH (17:48)
[2019-03-06] MEDS: SERTRALINE 100 MG TABLET PER TUBE SCH (20:31)
[2019-03-07] MEDS: ALBUTEROL/IPRATROPIUM 3 ML NEB RESP TX SCH ×4 (00:35→20:20)
[2019-03-07] MEDS: INSULIN REGULAR 100 UNIT/ML SUBCUT SCH ×4 (00:48→18:08)
[2019-03-07] MEDS: PROPOFOL 1,000 MG/100 ML BOTTLE IV SCH ×6 (01:58→21:55)
[2019-03-07 03:38] LABS: ABG Base Excess -4.5 MMOL/L (-2.5-2.5); ABG HCO3 19.5 MMOL/L (20-26); ABG PCO2 31.4 MM HG (35-48); ABG TCO2 20.4 MMOL/L (23-27); Allen Test Positive; Pt O2 Delivery Device Ventilator
[2019-03-07 05:06] LABS: Basophils # 0.1 10*3/uL (0.0-0.2); Basophils % 0.5 % (0.0-0.8); Hematocrit 26.3 VOL% (35.7-47.0); Hemoglobin 8.3 GM/DL (12.0-16.0); Immature Granulocytes % 5.3 %; Immature Granulocytes Absolute 0.81 #; Lymphocytes # 1.6 10*3/uL (1.4-4.0); Lymphocytes % 10.6 % (21.3-54.2); Mean Corpuscular HGB Conc 31.6 GM/DL (32-36); Mean Platelet Volume 9.8 FL (9.6-12.0); Monocytes % 4.9 % (1.7-12.7); Neutrophils % 78.7 % (38.7-73.9); Platelet Count 280 T/CUMM (130-400); Red Blood Count 2.74 MC/CUMM (3.8-5.5); Red Cell Distribution Width 15.1 % (9.3-17.3); White Blood Count 15.2 T/CUMM (4-12)
[2019-03-07 05:31] LABS: Calcium 6.4 MG/DL (8.5-10.1); Osmolality,Calculated 289.7 MOS/KG (273-304)
[2019-03-07] MEDS: LEVOTHYROXINE 100 MCG VIAL IV SCH (05:45)
[2019-03-07] MEDS: methylPREDNISolone SOD SUC 40 MG/1 ML VIAL IV SCH ×2 (05:45→17:33)
[2019-03-07 06:48] LABS: Band Neutrophils 1 % (0-10); Eosinophils 1 % (0-10); Lymphocytes 10 % (20-55); Platelet Estimate Adequate; Segmented Neutrophils 84 % (50-85); Total Cells Counted 100
[2019-03-07 06:49] LABS: Hypochromasia 1+; Ovalocytes Slight
[2019-03-07] MEDS: CYCLOBENZAPRINE 10 MG TABLET PER TUBE SCH ×3 (11:15→21:52)
[2019-03-07] MEDS: carBAMazepine 200 MG TABLET PER TUBE SCH ×4 (11:15→21:50)
[2019-03-07] MEDS: PANTOPRAZOLE 40 MG VIAL IV SCH (11:15)
[2019-03-07] MEDS: PREGABALIN 75 MG CAPSULE NG SCH ×3 (11:22→21:50)
[2019-03-07] MEDS: INSULIN GLARGINE 100 UNIT/ML SUBCUT SCH (11:24)
[2019-03-07] MEDS: fentaNYL INJ 2,500 MCG in SODIUM CHLORIDE 0.9% 200 ML IV PRN (16:14)
[2019-03-07] MEDS: ENOXAPARIN 30 MG/0.3 ML SYRINGE SUBCUT SCH (17:27)
[2019-03-07] MEDS: SERTRALINE 100 MG TABLET PER TUBE SCH (21:50)
[2019-03-08] MEDS: INSULIN GLARGINE 100 UNIT/ML SUBCUT SCH ×3 (00:40→21:20)
[2019-03-08] MEDS: INSULIN REGULAR 100 UNIT/ML SUBCUT SCH ×4 (00:49→18:09)
[2019-03-08] MEDS: ALBUTEROL/IPRATROPIUM 3 ML NEB RESP TX SCH ×4 (01:30→19:19)
[2019-03-08] MEDS: PROPOFOL 1,000 MG/100 ML BOTTLE IV SCH ×2 (02:10→07:01)
[2019-03-08 05:17] LABS: ABG Base Excess -1.5 MMOL/L (-2.5-2.5); ABG HCO3 23.1 MMOL/L (20-26); ABG PCO2 37.3 MM HG (35-48); ABG PH 7.397 (7.35-7.45); ABG TCO2 20.9 MMOL/L (23-27); Allen Test Positive; Pt O2 Delivery Device Ventilator
[2019-03-08 05:17] LABS: Osmolality,Calculated 284.1 MOS/KG (273-304)
[2019-03-08] MEDS: methylPREDNISolone SOD SUC 40 MG/1 ML VIAL IV SCH ×2 (06:25→17:32)
[2019-03-08] MEDS: LEVOTHYROXINE 100 MCG VIAL IV SCH (06:33)
[2019-03-08] MEDS: CYCLOBENZAPRINE 10 MG TABLET PER TUBE SCH ×3 (10:18→21:00)
[2019-03-08] MEDS: PREGABALIN 75 MG CAPSULE NG SCH ×3 (10:19→21:00)
[2019-03-08] MEDS: PANTOPRAZOLE 40 MG VIAL IV SCH (10:20)
[2019-03-08] MEDS: carBAMazepine 200 MG TABLET PER TUBE SCH ×4 (10:21→21:00)
[2019-03-08] MEDS: ENOXAPARIN 30 MG/0.3 ML SYRINGE SUBCUT SCH (17:33)
[2019-03-08] MEDS: SERTRALINE 100 MG TABLET PER TUBE SCH (21:01)
[2019-03-09] MEDS: ALBUTEROL/IPRATROPIUM 3 ML NEB RESP TX SCH ×4 (01:00→20:10)
[2019-03-09] MEDS: INSULIN REGULAR 100 UNIT/ML SUBCUT SCH ×4 (01:05→17:08)
[2019-03-09 03:58] LABS: Basophils # 0.1 10*3/uL (0.0-0.2); Basophils % 0.4 % (0.0-0.8); Hematocrit 27.2 VOL% (35.7-47.0); Hemoglobin 8.5 GM/DL (12.0-16.0); Immature Granulocytes % 4.3 %; Immature Granulocytes Absolute 0.89 #; Lymphocytes # 1.3 10*3/uL (1.4-4.0); Lymphocytes % 6.2 % (21.3-54.2); Mean Corpuscular HGB Conc 31.3 GM/DL (32-36); Mean Corpuscular Volume 96.1 FL (87-102); Mean Platelet Volume 9.5 FL (9.6-12.0); Monocytes % 2.8 % (1.7-12.7); Neutrophils % 86.3 % (38.7-73.9); Platelet Count 221 T/CUMM (130-400); Red Blood Count 2.83 MC/CUMM (3.8-5.5); Red Cell Distribution Width 15.1 % (9.3-17.3); White Blood Count 20.8 T/CUMM (4-12)
[2019-03-09 04:08] LABS: ABG Base Excess -4.1 MMOL/L (-2.5-2.5); ABG HCO3 20.2 MMOL/L (20-26); ABG PCO2 33.9 MM HG (35-48); ABG PH 7.393 (7.35-7.45); ABG PO2 73.4 MM HG (80-95); ABG TCO2 21.2 MMOL/L (23-27)
[2019-03-09 04:09] LABS: Allen Test Positive
[2019-03-09 04:14] LABS: Calcium 6.6 MG/DL (8.5-10.1); Osmolality,Calculated 290.1 MOS/KG (273-304)
[2019-03-09 04:53] LABS: Band Neutrophils 2 % (0-10); Hypochromasia Slight; Lymphocytes 5 % (20-55); Platelet Estimate Adequate; Segmented Neutrophils 90 % (50-85); Total Cells Counted 100
[2019-03-09] MEDS: methylPREDNISolone SOD SUC 40 MG/1 ML VIAL IV SCH ×2 (06:27→17:07)
[2019-03-09] MEDS: LEVOTHYROXINE 100 MCG VIAL IV SCH (06:28)
[2019-03-09] MEDS: PREGABALIN 75 MG CAPSULE NG SCH ×3 (09:02→20:18)
[2019-03-09] MEDS: CYCLOBENZAPRINE 10 MG TABLET PER TUBE SCH ×3 (09:02→20:18)
[2019-03-09] MEDS: carBAMazepine 200 MG TABLET PER TUBE SCH ×4 (09:03→20:18)
[2019-03-09] MEDS: INSULIN GLARGINE 100 UNIT/ML SUBCUT SCH ×2 (09:59→20:18)
[2019-03-09] MEDS: PANTOPRAZOLE 40 MG VIAL IV SCH (10:36)
[2019-03-09] MEDS: NYSTATIN 500,000 UNIT/5 ML UDCUP SWISH/SWAL SCH ×3 (15:09→20:18)
[2019-03-09] MEDS: ENOXAPARIN 30 MG/0.3 ML SYRINGE SUBCUT SCH (17:08)
[2019-03-09] MEDS: SERTRALINE 100 MG TABLET PER TUBE SCH (20:18)
[2019-03-09] MEDS: hydrALAZINE 20 MG/1 ML VIAL IV PRN (20:18)
[2019-03-10] MEDS: INSULIN REGULAR 100 UNIT/ML SUBCUT SCH ×4 (00:08→17:50)
[2019-03-10] MEDS: ALBUTEROL/IPRATROPIUM 3 ML NEB RESP TX SCH ×4 (01:24→20:09)
[2019-03-10 04:06] LABS: Basophils # 0.1 10*3/uL (0.0-0.2); Basophils % 0.5 % (0.0-0.8); Hematocrit 27.9 VOL% (35.7-47.0); Hemoglobin 8.8 GM/DL (12.0-16.0); Immature Granulocytes % 3.6 %; Immature Granulocytes Absolute 0.71 #; Lymphocytes # 1.6 10*3/uL (1.4-4.0); Lymphocytes % 7.9 % (21.3-54.2); Mean Corpuscular HGB Conc 31.5 GM/DL (32-36); Mean Corpuscular Volume 95.5 FL (87-102); Mean Platelet Volume 10.3 FL (9.6-12.0); Platelet Count 227 T/CUMM (130-400); Red Blood Count 2.92 MC/CUMM (3.8-5.5); White Blood Count 19.7 T/CUMM (4-12)
[2019-03-10 04:29] LABS: Calcium 7.2 MG/DL (8.5-10.1); Osmolality,Calculated 284.7 MOS/KG (273-304)
[2019-03-10 04:53] LABS: Lymphocytes 14 % (20-55); Platelet Estimate Normal; Segmented Neutrophils 81 % (50-85); Total Cells Counted 100
[2019-03-10] MEDS: oxyCODONE/ACETAMINOPHEN 5-325 MG TABLET PO PRN (05:25)
[2019-03-10] MEDS: LEVOTHYROXINE 100 MCG VIAL IV SCH (05:25)
[2019-03-10] MEDS: methylPREDNISolone SOD SUC 40 MG/1 ML VIAL IV SCH ×2 (05:25→17:48)
[2019-03-10] MEDS: CYCLOBENZAPRINE 10 MG TABLET PER TUBE SCH ×3 (08:18→20:05)
[2019-03-10] MEDS: carBAMazepine 200 MG TABLET PER TUBE SCH (08:19)
[2019-03-10] MEDS: NYSTATIN 500,000 UNIT/5 ML UDCUP SWISH/SWAL SCH ×4 (08:19→20:05)
[2019-03-10] MEDS: PREGABALIN 75 MG CAPSULE NG SCH (08:19)
[2019-03-10] MEDS: INSULIN GLARGINE 100 UNIT/ML SUBCUT SCH ×2 (08:19→20:05)
[2019-03-10] MEDS: PANTOPRAZOLE 40 MG VIAL IV SCH (08:19)
[2019-03-10 11:30] LABS: ABG HCO3 22.7 MMOL/L (20-26); ABG PCO2 35.9 MM HG (35-48); ABG PH 7.401 (7.35-7.45); ABG PO2 85.4 MM HG (80-95); ABG TCO2 20.5 MMOL/L (23-27); Pt O2 Delivery Device Venturi Mask
[2019-03-10] MEDS: carBAMazepine 200 MG TABLET PO SCH ×3 (14:34→20:05)
[2019-03-10] MEDS: PREGABALIN 50 MG CAPSULE PO SCH ×2 (14:35→20:05)
[2019-03-10] MEDS: ENOXAPARIN 30 MG/0.3 ML SYRINGE SUBCUT SCH (17:49)
[2019-03-10] MEDS: SERTRALINE 100 MG TABLET PER TUBE SCH (20:05)
[2019-03-11] MEDS: INSULIN REGULAR 100 UNIT/ML SUBCUT SCH ×5 (00:06→23:35)
[2019-03-11] MEDS: ALBUTEROL/IPRATROPIUM 3 ML NEB RESP TX SCH ×4 (01:36→20:24)
[2019-03-11] MEDS: LEVOTHYROXINE 100 MCG VIAL IV SCH (05:30)
[2019-03-11] MEDS: methylPREDNISolone SOD SUC 40 MG/1 ML VIAL IV SCH ×2 (05:30→17:45)
[2019-03-11 06:15] LABS: Basophils # 0.1 10*3/uL (0.0-0.2); Basophils % 0.7 % (0.0-0.8); Eosinophils % 0.1 % (0.00-10.9); Hematocrit 28.1 VOL% (35.7-47.0); Hemoglobin 8.7 GM/DL (12.0-16.0); Immature Granulocytes Absolute 0.27 #; Lymphocytes # 1.9 10*3/uL (1.4-4.0); Lymphocytes % 13.9 % (21.3-54.2); Mean Corpuscular Volume 97.9 FL (87-102); Mean Platelet Volume 9.6 FL (9.6-12.0); Monocytes % 4.1 % (1.7-12.7); Neutrophils % 79.2 % (38.7-73.9); Platelet Count 227 T/CUMM (130-400); Red Blood Count 2.87 MC/CUMM (3.8-5.5); Red Cell Distribution Width 15.2 % (9.3-17.3); White Blood Count 13.5 T/CUMM (4-12)
[2019-03-11 06:34] LABS: Calcium 7.3 MG/DL (8.5-10.1); Osmolality,Calculated 296.5 MOS/KG (273-304)
[2019-03-11] MEDS: PANTOPRAZOLE 40 MG VIAL IV SCH (09:44)
[2019-03-11] MEDS: PREGABALIN 50 MG CAPSULE PO SCH ×3 (09:44→21:40)
[2019-03-11] MEDS: NYSTATIN 500,000 UNIT/5 ML UDCUP SWISH/SWAL SCH ×4 (09:44→21:40)
[2019-03-11] MEDS: INSULIN GLARGINE 100 UNIT/ML SUBCUT SCH ×2 (09:44→22:19)
[2019-03-11] MEDS: CYCLOBENZAPRINE 10 MG TABLET PER TUBE SCH (09:44)
[2019-03-11] MEDS: carBAMazepine 200 MG TABLET PO SCH ×4 (09:45→21:40)
[2019-03-11] MEDS: ENOXAPARIN 30 MG/0.3 ML SYRINGE SUBCUT SCH (17:45)
[2019-03-11] MEDS: SERTRALINE 100 MG TABLET PER TUBE SCH (21:40)
[2019-03-12] MEDS: ALBUTEROL/IPRATROPIUM 3 ML NEB RESP TX SCH ×4 (00:48→20:01)
[2019-03-12 05:28] LABS: Basophils # 0.1 10*3/uL (0.0-0.2); Basophils % 0.7 % (0.0-0.8); Eosinophils % 0.1 % (0.00-10.9); Hematocrit 28.2 VOL% (35.7-47.0); Hemoglobin 8.6 GM/DL (12.0-16.0); Immature Granulocytes % 1.5 %; Immature Granulocytes Absolute 0.19 #; Lymphocytes # 1.8 10*3/uL (1.4-4.0); Lymphocytes % 14.3 % (21.3-54.2); Mean Corpuscular HGB Conc 30.5 GM/DL (32-36); Mean Corpuscular Volume 97.9 FL (87-102); Mean Platelet Volume 9.6 FL (9.6-12.0); Monocytes % 4.4 % (1.7-12.7); Platelet Count 229 T/CUMM (130-400); Red Blood Count 2.88 MC/CUMM (3.8-5.5); White Blood Count 12.4 T/CUMM (4-12)
[2019-03-12 05:51] LABS: Calcium 7.8 MG/DL (8.5-10.1); Osmolality,Calculated 305.1 MOS/KG (273-304)
[2019-03-12] MEDS: LEVOTHYROXINE 100 MCG VIAL IV SCH (06:11)
[2019-03-12] MEDS: INSULIN REGULAR 100 UNIT/ML SUBCUT SCH ×3 (06:11→18:04)
[2019-03-12] MEDS: methylPREDNISolone SOD SUC 40 MG/1 ML VIAL IV SCH ×2 (06:11→16:09)
[2019-03-12] MEDS: INSULIN GLARGINE 100 UNIT/ML SUBCUT SCH ×2 (08:05→21:00)
[2019-03-12] MEDS: carBAMazepine 200 MG TABLET PO SCH ×4 (08:08→20:52)
[2019-03-12] MEDS: PANTOPRAZOLE 40 MG VIAL IV SCH (08:08)
[2019-03-12] MEDS: PREGABALIN 50 MG CAPSULE PO SCH ×3 (08:08→20:52)
[2019-03-12] MEDS: NYSTATIN 500,000 UNIT/5 ML UDCUP SWISH/SWAL SCH ×4 (08:08→20:52)
[2019-03-12] MEDS: ENOXAPARIN 30 MG/0.3 ML SYRINGE SUBCUT SCH (17:35)
[2019-03-12] MEDS: hydrALAZINE 20 MG/1 ML VIAL IV PRN (20:53)
[2019-03-12] MEDS: SERTRALINE 100 MG TABLET PER TUBE SCH (20:53)
[2019-03-12] MEDS: oxyCODONE/ACETAMINOPHEN 5-325 MG TABLET PO PRN (20:59)
[2019-03-13] MEDS: INSULIN REGULAR 100 UNIT/ML SUBCUT SCH ×4 (00:22→17:41)
[2019-03-13] MEDS: ALBUTEROL/IPRATROPIUM 3 ML NEB RESP TX SCH ×4 (00:51→19:57)
[2019-03-13] MEDS: hydrALAZINE 20 MG/1 ML VIAL IV PRN (03:13)
[2019-03-13] MEDS: methylPREDNISolone SOD SUC 40 MG/1 ML VIAL IV SCH ×2 (04:25→17:09)
[2019-03-13 04:33] LABS: Basophils # 0.1 10*3/uL (0.0-0.2); Eosinophils % 0.1 % (0.00-10.9); Hematocrit 31.7 VOL% (35.7-47.0); Hemoglobin 9.8 GM/DL (12.0-16.0); Immature Granulocytes % 1.5 %; Immature Granulocytes Absolute 0.18 #; Lymphocytes # 1.8 10*3/uL (1.4-4.0); Lymphocytes % 14.4 % (21.3-54.2); Mean Corpuscular HGB Conc 30.9 GM/DL (32-36); Mean Corpuscular Volume 96.9 FL (87-102); Mean Platelet Volume 9.5 FL (9.6-12.0); Monocytes % 5.5 % (1.7-12.7); Neutrophils % 77.5 % (38.7-73.9); Platelet Count 224 T/CUMM (130-400); Red Blood Count 3.27 MC/CUMM (3.8-5.5); Red Cell Distribution Width 14.6 % (9.3-17.3); White Blood Count 12.2 T/CUMM (4-12)
[2019-03-13 04:53] LABS: Calcium 8.3 MG/DL (8.5-10.1); Osmolality,Calculated 295.8 MOS/KG (273-304)
[2019-03-13] MEDS: oxyCODONE/ACETAMINOPHEN 5-325 MG TABLET PO PRN (05:05)
[2019-03-13] MEDS ORDERED: hydrALAZINE 20 MG/1 ML VIAL IV ONE (05:20)
[2019-03-13] MEDS: LEVOTHYROXINE 100 MCG VIAL IV SCH (06:24)
[2019-03-13] MEDS: NYSTATIN 500,000 UNIT/5 ML UDCUP SWISH/SWAL SCH ×4 (08:41→20:34)
[2019-03-13] MEDS: PREGABALIN 50 MG CAPSULE PO SCH ×3 (08:41→20:36)
[2019-03-13] MEDS: carBAMazepine 200 MG TABLET PO SCH ×4 (08:41→20:32)
[2019-03-13] MEDS: PANTOPRAZOLE 40 MG VIAL IV SCH (08:41)
[2019-03-13] MEDS: INSULIN GLARGINE 100 UNIT/ML SUBCUT SCH ×2 (08:41→20:34)
[2019-03-13] MEDS: ENOXAPARIN 30 MG/0.3 ML SYRINGE SUBCUT SCH (17:09)
[2019-03-13] MEDS ORDERED: carBAMazepine 200 MG TABLET PO SCH (19:33)
[2019-03-13] MEDS ORDERED: CETIRIZINE 10 MG TABLET PO PRN (19:33)
[2019-03-13] MEDS: ASPIRIN EC 81 MG TABLET PO SCH (20:32)
[2019-03-13] MEDS: SERTRALINE 100 MG TABLET PO SCH (20:33)
[2019-03-13] MEDS: CYCLOBENZAPRINE 10 MG TABLET PO SCH ×2 (20:34)
[2019-03-13] MEDS: SERTRALINE 100 MG TABLET PER TUBE SCH (20:36)
[2019-03-13] MEDS: PREGABALIN 75 MG CAPSULE PO SCH (21:04)
[2019-03-13] MEDS: SIMVASTATIN 10 MG TABLET PO SCH (21:38)
[2019-03-14] MEDS: INSULIN REGULAR 100 UNIT/ML SUBCUT SCH ×4 (00:25→17:19)
[2019-03-14] MEDS: ALBUTEROL/IPRATROPIUM 3 ML NEB RESP TX SCH ×4 (01:56→20:28)
[2019-03-14] MEDS: hydrALAZINE 20 MG/1 ML VIAL IV PRN (05:10)
[2019-03-14] MEDS: methylPREDNISolone SOD SUC 40 MG/1 ML VIAL IV SCH ×3 (05:21→21:23)
[2019-03-14] MEDS: LEVOTHYROXINE 50 MCG TABLET PO SCH (06:29)
[2019-03-14 08:36] LABS: Calcium 8.4 MG/DL (8.5-10.1); Osmolality,Calculated 300.1 MOS/KG (273-304)
[2019-03-14] MEDS ORDERED: Dapagliflozin [Farxiga] 5 MG PO SCH (09:00)
[2019-03-14] MEDS ORDERED: VALSARTAN/HCTZ 80-12.5 MG TABLET PO SCH (09:00)
[2019-03-14] MEDS: PREGABALIN 75 MG CAPSULE PO SCH ×3 (09:51→21:23)
[2019-03-14] MEDS: CYCLOBENZAPRINE 10 MG TABLET PO SCH ×3 (09:51→21:23)
[2019-03-14] MEDS: PANTOPRAZOLE 40 MG TABLET PO SCH (09:51)
[2019-03-14] MEDS: PREGABALIN 50 MG CAPSULE PO SCH (09:51)
[2019-03-14] MEDS: carBAMazepine 200 MG TABLET PO SCH ×4 (09:52→21:21)
[2019-03-14] MEDS: INSULIN GLARGINE 100 UNIT/ML SUBCUT SCH ×2 (09:52→21:23)
[2019-03-14] MEDS: NYSTATIN 500,000 UNIT/5 ML UDCUP SWISH/SWAL SCH ×4 (09:52→21:22)
[2019-03-14] MEDS: SIMVASTATIN 10 MG TABLET PO SCH (17:38)
[2019-03-14] MEDS: ENOXAPARIN 30 MG/0.3 ML SYRINGE SUBCUT SCH (17:39)
[2019-03-14] MEDS: SERTRALINE 100 MG TABLET PO SCH (21:22)
[2019-03-14] MEDS: ASPIRIN EC 81 MG TABLET PO SCH (21:23)
[2019-03-15] MEDS: ALBUTEROL/IPRATROPIUM 3 ML NEB RESP TX SCH ×4 (01:46→19:45)
[2019-03-15] MEDS: INSULIN REGULAR 100 UNIT/ML SUBCUT SCH ×4 (02:10→18:30)
[2019-03-15 05:45] LABS: Basophils # 0.1 10*3/uL (0.0-0.2); Eosinophils # 0.1 10*3/uL (0.0-0.87); Eosinophils % 1.2 % (0.00-10.9); Hematocrit 30.5 VOL% (35.7-47.0); Hemoglobin 9.3 GM/DL (12.0-16.0); Immature Granulocytes % 0.8 %; Immature Granulocytes Absolute 0.07 #; Lymphocytes # 1.7 10*3/uL (1.4-4.0); Lymphocytes % 19.6 % (21.3-54.2); Mean Corpuscular HGB Conc 30.5 GM/DL (32-36); Mean Corpuscular Volume 98.1 FL (87-102); Mean Platelet Volume 10.3 FL (9.6-12.0); Monocytes % 4.8 % (1.7-12.7); Neutrophils % 72.6 % (38.7-73.9); Platelet Count 228 T/CUMM (130-400); Red Blood Count 3.11 MC/CUMM (3.8-5.5); Red Cell Distribution Width 15.3 % (9.3-17.3); White Blood Count 8.6 T/CUMM (4-12)
[2019-03-15 06:06] LABS: Calcium 8.4 MG/DL (8.5-10.1); Osmolality,Calculated 298.4 MOS/KG (273-304)
[2019-03-15] MEDS: LEVOTHYROXINE 50 MCG TABLET PO SCH (06:29)
[2019-03-15] MEDS: methylPREDNISolone SOD SUC 40 MG/1 ML VIAL IV SCH (09:35)
[2019-03-15] MEDS: NYSTATIN 500,000 UNIT/5 ML UDCUP SWISH/SWAL SCH ×4 (09:36→21:26)
[2019-03-15] MEDS: PREGABALIN 75 MG CAPSULE PO SCH ×3 (09:36→21:25)
[2019-03-15] MEDS: carBAMazepine 200 MG TABLET PO SCH ×4 (09:36→21:25)
[2019-03-15] MEDS: ERGOCALCIFEROL 50,000 UNIT CAPSULE PO SCH (09:36)
[2019-03-15] MEDS: PANTOPRAZOLE 40 MG TABLET PO SCH (09:36)
[2019-03-15] MEDS: oxyCODONE/ACETAMINOPHEN 5-325 MG TABLET PO PRN (09:43)
[2019-03-15] MEDS: CYCLOBENZAPRINE 10 MG TABLET PO SCH ×3 (09:45→21:25)
[2019-03-15] MEDS: INSULIN GLARGINE 100 UNIT/ML SUBCUT SCH ×2 (09:55→21:26)
[2019-03-15] MEDS: SIMVASTATIN 10 MG TABLET PO SCH (16:59)
[2019-03-15] MEDS: TAMSULOSIN 0.4 MG CAPSULE PO SCH (16:59)
[2019-03-15] MEDS: ENOXAPARIN 30 MG/0.3 ML SYRINGE SUBCUT SCH (17:00)
[2019-03-15] MEDS: SERTRALINE 100 MG TABLET PO SCH (21:25)
[2019-03-15] MEDS: ASPIRIN EC 81 MG TABLET PO SCH (21:25)
[2019-03-16] MEDS: INSULIN REGULAR 100 UNIT/ML SUBCUT SCH ×4 (01:11→18:13)
[2019-03-16] MEDS: ALBUTEROL/IPRATROPIUM 3 ML NEB RESP TX SCH ×4 (01:20→19:57)
[2019-03-16 04:43] LABS: Basophils # 0.1 10*3/uL (0.0-0.2); Basophils % 0.8 % (0.0-0.8); Eosinophils # 0.2 10*3/uL (0.0-0.87); Eosinophils % 1.4 % (0.00-10.9); Hematocrit 28.7 VOL% (35.7-47.0); Hemoglobin 8.5 GM/DL (12.0-16.0); Immature Granulocytes % 0.9 %; Lymphocytes # 2.1 10*3/uL (1.4-4.0); Lymphocytes % 19.2 % (21.3-54.2); Mean Corpuscular HGB Conc 29.6 GM/DL (32-36); Mean Corpuscular Volume 99.7 FL (87-102); Mean Platelet Volume 10.3 FL (9.6-12.0); Monocytes % 5.5 % (1.7-12.7); Neutrophils % 72.2 % (38.7-73.9); Platelet Count 203 T/CUMM (130-400); Red Blood Count 2.88 MC/CUMM (3.8-5.5); Red Cell Distribution Width 15.4 % (9.3-17.3); White Blood Count 11.1 T/CUMM (4-12)
[2019-03-16 04:59] LABS: Osmolality,Calculated 301.5 MOS/KG (273-304)
[2019-03-16] MEDS: carBAMazepine 200 MG TABLET PO SCH ×4 (08:53→22:05)
[2019-03-16] MEDS: LEVOTHYROXINE 50 MCG TABLET PO SCH (08:53)
[2019-03-16] MEDS: PREGABALIN 75 MG CAPSULE PO SCH ×3 (08:53→22:05)
[2019-03-16] MEDS: CYCLOBENZAPRINE 10 MG TABLET PO SCH ×3 (08:53→22:07)
[2019-03-16] MEDS: TAMSULOSIN 0.4 MG CAPSULE PO SCH (08:53)
[2019-03-16] MEDS: PANTOPRAZOLE 40 MG TABLET PO SCH (08:53)
[2019-03-16] MEDS: NYSTATIN 500,000 UNIT/5 ML UDCUP SWISH/SWAL SCH ×3 (08:54→16:32)
[2019-03-16] MEDS: INSULIN GLARGINE 100 UNIT/ML SUBCUT SCH ×2 (09:36→22:08)
[2019-03-16] MEDS: oxyCODONE/ACETAMINOPHEN 5-325 MG TABLET PO PRN ×2 (14:32→22:06)
[2019-03-16] MEDS: SIMVASTATIN 10 MG TABLET PO SCH (16:31)
[2019-03-16] MEDS: ENOXAPARIN 30 MG/0.3 ML SYRINGE SUBCUT SCH (16:32)
[2019-03-16] MEDS: SERTRALINE 100 MG TABLET PO SCH (22:07)
[2019-03-16] MEDS: ASPIRIN EC 81 MG TABLET PO SCH (22:07)
[2019-03-17] MEDS: INSULIN REGULAR 100 UNIT/ML SUBCUT SCH ×4 (00:28→18:29)
[2019-03-17] MEDS: ALBUTEROL/IPRATROPIUM 3 ML NEB RESP TX SCH ×4 (02:51→19:11)
[2019-03-17 06:22] LABS: Calcium 8.2 MG/DL (8.5-10.1); Osmolality,Calculated 287.4 MOS/KG (273-304)
[2019-03-17] MEDS: LEVOTHYROXINE 50 MCG TABLET PO SCH (06:22)
[2019-03-17] MEDS: INSULIN GLARGINE 100 UNIT/ML SUBCUT SCH ×2 (08:39→21:40)
[2019-03-17] MEDS: TAMSULOSIN 0.4 MG CAPSULE PO SCH (08:40)
[2019-03-17] MEDS: carBAMazepine 200 MG TABLET PO SCH ×4 (08:40→21:39)
[2019-03-17] MEDS: PREGABALIN 75 MG CAPSULE PO SCH ×3 (08:40→21:39)
[2019-03-17] MEDS: PANTOPRAZOLE 40 MG TABLET PO SCH (08:40)
[2019-03-17] MEDS: CYCLOBENZAPRINE 10 MG TABLET PO SCH ×3 (08:40→21:40)
[2019-03-17] MEDS ORDERED: NICOTINE 21 MG/24 HR PATCH TRANSDERM PRN (11:48)
[2019-03-17] MEDS: SIMVASTATIN 10 MG TABLET PO SCH (17:33)
[2019-03-17] MEDS: ENOXAPARIN 30 MG/0.3 ML SYRINGE SUBCUT SCH (17:33)
[2019-03-17] MEDS: oxyCODONE/ACETAMINOPHEN 5-325 MG TABLET PO PRN (19:40)
[2019-03-17] MEDS: SERTRALINE 100 MG TABLET PO SCH (21:39)
[2019-03-17] MEDS: ASPIRIN EC 81 MG TABLET PO SCH (21:40)
[2019-03-18] MEDS: INSULIN REGULAR 100 UNIT/ML SUBCUT SCH ×4 (00:53→17:45)
[2019-03-18] MEDS: ALBUTEROL/IPRATROPIUM 3 ML NEB RESP TX SCH ×4 (01:56→19:09)
[2019-03-18 03:04] LABS: Basophils # 0.1 10*3/uL (0.0-0.2); Basophils % 0.9 % (0.0-0.8); Eosinophils # 0.3 10*3/uL (0.0-0.87); Hematocrit 29.2 VOL% (35.7-47.0); Immature Granulocytes Absolute 0.09 #; Lymphocytes # 1.3 10*3/uL (1.4-4.0); Mean Corpuscular HGB Conc 30.8 GM/DL (32-36); Mean Corpuscular Volume 99.7 FL (87-102); Mean Platelet Volume 11.1 FL (9.6-12.0); Monocytes % 7.2 % (1.7-12.7); Neutrophils % 72.9 % (38.7-73.9); Platelet Count 231 T/CUMM (130-400); Red Blood Count 2.93 MC/CUMM (3.8-5.5); Red Cell Distribution Width 15.8 % (9.3-17.3); White Blood Count 8.9 T/CUMM (4-12)
[2019-03-18 03:34] LABS: Calcium 8.4 MG/DL (8.5-10.1); Osmolality,Calculated 289.4 MOS/KG (273-304)
[2019-03-18] MEDS: oxyCODONE/ACETAMINOPHEN 5-325 MG TABLET PO PRN ×2 (04:05→20:56)
[2019-03-18] MEDS: PREGABALIN 75 MG CAPSULE PO SCH ×3 (08:20→20:52)
[2019-03-18] MEDS: INSULIN GLARGINE 100 UNIT/ML SUBCUT SCH ×2 (08:20→20:52)
[2019-03-18] MEDS: carBAMazepine 200 MG TABLET PO SCH ×4 (08:21→20:51)
[2019-03-18] MEDS: LEVOTHYROXINE 50 MCG TABLET PO SCH (08:21)
[2019-03-18] MEDS: TAMSULOSIN 0.4 MG CAPSULE PO SCH (08:21)
[2019-03-18] MEDS: CYCLOBENZAPRINE 10 MG TABLET PO SCH ×3 (08:21→20:51)
[2019-03-18] MEDS: PANTOPRAZOLE 40 MG TABLET PO SCH (08:21)
[2019-03-18] MEDS: POLYETHYLENE GLYCOL POWDER 17 GM PACK PO SCH (10:00)
[2019-03-18] MEDS: SIMVASTATIN 10 MG TABLET PO SCH (17:34)
[2019-03-18] MEDS: ENOXAPARIN 30 MG/0.3 ML SYRINGE SUBCUT SCH (17:35)
[2019-03-18] MEDS: ASPIRIN EC 81 MG TABLET PO SCH (20:51)
[2019-03-18] MEDS: SERTRALINE 100 MG TABLET PO SCH (20:51)
[2019-03-19] MEDS: ALBUTEROL/IPRATROPIUM 3 ML NEB RESP TX SCH ×4 (01:01→20:06)
[2019-03-19] MEDS: INSULIN REGULAR 100 UNIT/ML SUBCUT SCH ×3 (01:14→18:08)
[2019-03-19 04:47] LABS: Basophils # 0.1 10*3/uL (0.0-0.2); Basophils % 0.8 % (0.0-0.8); Eosinophils # 0.4 10*3/uL (0.0-0.87); Eosinophils % 4.4 % (0.00-10.9); Hematocrit 30.3 VOL% (35.7-47.0); Immature Granulocytes % 0.9 %; Immature Granulocytes Absolute 0.08 #; Lymphocytes # 1.4 10*3/uL (1.4-4.0); Lymphocytes % 16.2 % (21.3-54.2); Mean Corpuscular HGB Conc 29.7 GM/DL (32-36); Mean Corpuscular Volume 101.7 FL (87-102); Mean Platelet Volume 10.9 FL (9.6-12.0); Monocytes % 6.7 % (1.7-12.7); Platelet Count 268 T/CUMM (130-400); Red Blood Count 2.98 MC/CUMM (3.8-5.5); Red Cell Distribution Width 15.6 % (9.3-17.3); White Blood Count 8.6 T/CUMM (4-12)
[2019-03-19 05:04] LABS: Calcium 8.6 MG/DL (8.5-10.1); Osmolality,Calculated 295.3 MOS/KG (273-304)
[2019-03-19] MEDS: oxyCODONE/ACETAMINOPHEN 5-325 MG TABLET PO PRN (05:28)
[2019-03-19] MEDS: TAMSULOSIN 0.4 MG CAPSULE PO SCH (08:45)
[2019-03-19] MEDS: CYCLOBENZAPRINE 10 MG TABLET PO SCH ×3 (08:56→21:41)
[2019-03-19] MEDS: PANTOPRAZOLE 40 MG TABLET PO SCH (08:56)
[2019-03-19] MEDS: carBAMazepine 200 MG TABLET PO SCH ×4 (08:57→21:41)
[2019-03-19] MEDS: ERGOCALCIFEROL 50,000 UNIT CAPSULE PO SCH (08:57)
[2019-03-19] MEDS: PREGABALIN 75 MG CAPSULE PO SCH ×3 (08:57→21:41)
[2019-03-19] MEDS: POLYETHYLENE GLYCOL POWDER 17 GM PACK PO SCH (08:57)
[2019-03-19] MEDS ORDERED: METHYLNALTREXONE 12 MG/0.6 ML VIAL SUBCUT ONE (12:34)
[2019-03-19] MEDS: INSULIN GLARGINE 100 UNIT/ML SUBCUT SCH ×2 (13:12→21:42)
[2019-03-19] MEDS: SIMVASTATIN 10 MG TABLET PO SCH (18:17)
[2019-03-19] MEDS: ENOXAPARIN 30 MG/0.3 ML SYRINGE SUBCUT SCH (18:17)
[2019-03-19] MEDS: SERTRALINE 100 MG TABLET PO SCH (21:41)
[2019-03-19] MEDS: ASPIRIN EC 81 MG TABLET PO SCH (21:42)
[2019-03-20] MEDS: ALBUTEROL/IPRATROPIUM 3 ML NEB RESP TX SCH ×4 (01:26→19:27)
[2019-03-20 05:03] LABS: Calcium 8.4 MG/DL (8.5-10.1)
[2019-03-20] MEDS: INSULIN REGULAR 100 UNIT/ML SUBCUT SCH ×5 (06:03→23:23)
[2019-03-20] MEDS: LEVOTHYROXINE 50 MCG TABLET PO SCH ×2 (06:05→09:07)
[2019-03-20] MEDS: carBAMazepine 200 MG TABLET PO SCH ×4 (09:06→21:19)
[2019-03-20] MEDS: PREGABALIN 75 MG CAPSULE PO SCH ×3 (09:07→21:19)
[2019-03-20] MEDS: TAMSULOSIN 0.4 MG CAPSULE PO SCH (09:07)
[2019-03-20] MEDS: INSULIN GLARGINE 100 UNIT/ML SUBCUT SCH ×2 (09:07→21:20)
[2019-03-20] MEDS: CYCLOBENZAPRINE 10 MG TABLET PO SCH ×3 (09:07→21:19)
[2019-03-20] MEDS: POLYETHYLENE GLYCOL POWDER 17 GM PACK PO SCH (09:08)
[2019-03-20] MEDS: PANTOPRAZOLE 40 MG TABLET PO SCH (09:10)
[2019-03-20] MEDS: SIMVASTATIN 10 MG TABLET PO SCH (16:44)
[2019-03-20] MEDS: ENOXAPARIN 30 MG/0.3 ML SYRINGE SUBCUT SCH (16:44)
[2019-03-20] MEDS: ASPIRIN EC 81 MG TABLET PO SCH (21:19)
[2019-03-20] MEDS: SERTRALINE 100 MG TABLET PO SCH (21:20)
[2019-03-21] MEDS: ALBUTEROL/IPRATROPIUM 3 ML NEB RESP TX SCH ×4 (00:37→19:48)
[2019-03-21] MEDS: LEVOTHYROXINE 50 MCG TABLET PO SCH (06:01)
[2019-03-21] MEDS: INSULIN REGULAR 100 UNIT/ML SUBCUT SCH ×3 (09:30→19:07)
[2019-03-21] MEDS: PANTOPRAZOLE 40 MG TABLET PO SCH (10:01)
[2019-03-21] MEDS: POLYETHYLENE GLYCOL POWDER 17 GM PACK PO SCH (10:01)
[2019-03-21] MEDS: TAMSULOSIN 0.4 MG CAPSULE PO SCH (10:01)
[2019-03-21] MEDS: PREGABALIN 75 MG CAPSULE PO SCH ×3 (10:01→22:33)
[2019-03-21] MEDS: CYCLOBENZAPRINE 10 MG TABLET PO SCH ×3 (10:01→22:33)
[2019-03-21] MEDS: carBAMazepine 200 MG TABLET PO SCH ×4 (10:01→22:34)
[2019-03-21] MEDS: INSULIN GLARGINE 100 UNIT/ML SUBCUT SCH ×2 (10:01→22:34)
[2019-03-21] MEDS: SIMVASTATIN 10 MG TABLET PO SCH (17:18)
[2019-03-21] MEDS: ENOXAPARIN 30 MG/0.3 ML SYRINGE SUBCUT SCH (17:18)
[2019-03-21] MEDS: SERTRALINE 100 MG TABLET PO SCH (22:34)
[2019-03-21] MEDS: ASPIRIN EC 81 MG TABLET PO SCH (22:34)
[2019-03-22] MEDS: ALBUTEROL/IPRATROPIUM 3 ML NEB RESP TX SCH ×3 (00:42→12:47)
[2019-03-22] MEDS: INSULIN REGULAR 100 UNIT/ML SUBCUT SCH ×3 (01:10→12:05)
[2019-03-22 05:19] LABS: Basophils # 0.1 10*3/uL (0.0-0.2); Eosinophils # 0.2 10*3/uL (0.0-0.87); Eosinophils % 3.4 % (0.00-10.9); Hematocrit 28.6 VOL% (35.7-47.0); Hemoglobin 8.5 GM/DL (12.0-16.0); Immature Granulocytes Absolute 0.07 #; Lymphocytes # 1.4 10*3/uL (1.4-4.0); Lymphocytes % 20.2 % (21.3-54.2); Mean Corpuscular HGB Conc 29.7 GM/DL (32-36); Mean Corpuscular Volume 101.1 FL (87-102); Mean Platelet Volume 10.7 FL (9.6-12.0); Monocytes % 7.9 % (1.7-12.7); Neutrophils % 66.5 % (38.7-73.9); Platelet Count 323 T/CUMM (130-400); Red Blood Count 2.83 MC/CUMM (3.8-5.5); Red Cell Distribution Width 15.7 % (9.3-17.3); White Blood Count 7.1 T/CUMM (4-12)
[2019-03-22 05:43] LABS: Albumin 2.2 G/DL (3.4-5.0); Bilirubin,Total 0.5 MG/DL (0.2-1.0); Calcium 8.7 MG/DL (8.5-10.1); Total Protein 6.3 G/DL (6.4-8.3)
[2019-03-22] MEDS: LEVOTHYROXINE 50 MCG TABLET PO SCH (06:42)
[2019-03-22] MEDS: PANTOPRAZOLE 40 MG TABLET PO SCH (09:03)
[2019-03-22] MEDS: POLYETHYLENE GLYCOL POWDER 17 GM PACK PO SCH (09:03)
[2019-03-22] MEDS: ERGOCALCIFEROL 50,000 UNIT CAPSULE PO SCH (09:03)
[2019-03-22] MEDS: CYCLOBENZAPRINE 10 MG TABLET PO SCH ×2 (09:03→15:50)
[2019-03-22] MEDS: INSULIN GLARGINE 100 UNIT/ML SUBCUT SCH (09:03)
[2019-03-22] MEDS: PREGABALIN 75 MG CAPSULE PO SCH ×2 (09:03→15:50)
[2019-03-22] MEDS: TAMSULOSIN 0.4 MG CAPSULE PO SCH (09:03)
[2019-03-22] MEDS: carBAMazepine 200 MG TABLET PO SCH ×2 (09:03→12:46)
[2019-03-22 11:42] VITALS: BP 113/56
[2019-03-22] MEDS: ACETAMINOPHEN 325 MG TABLET PO PRN (12:46)
== END 2019-03-22 17:24 | DRG 870 ==
LOC: EDUNIT# → N.ED 15:00 → SUATTDRO 17:11 → N.EDINP 17:11 → N.CC 19:17 → N.5E 03-14 14:26
PROVIDERS: ADMIT Internal Medicine; ATTEND Internal Medicine

== ENCOUNTER 2022-10-16 11:41 | Inpatient (IN) ==
[2022-10-16] MEDS ORDERED: ONDANSETRON 4 MG/2 ML VIAL IV STA (12:23)
[2022-10-16] MEDS ORDERED: PIPERACILLIN/TAZOBACTAM 3,375 MG in SODIUM CHLORIDE 0.9% 100 ML IV STA (12:23)
[2022-10-16] MEDS ORDERED: SODIUM CHLORIDE 0.9% 1,000 ML IV STA ×2 (12:23→14:16)
[2022-10-16 12:40] LABS: Basophils # 0.1 10*3/uL (0.0-0.2); Basophils % 0.4 % (0.0-0.8); Eosinophils # 0.1 10*3/uL (0.0-0.87); Eosinophils % 0.3 % (0.00-10.9); Hematocrit 42.7 VOL% (35.7-47.0); Hemoglobin 14.2 GM/DL (12.0-16.0); Immature Granulocytes % 3.4 %; Immature Granulocytes Absolute 0.91 #; Lymphocytes # 1.1 10*3/uL (1.4-4.0); Mean Corpuscular HGB Conc 33.3 GM/DL (32-36); Mean Corpuscular Volume 96.2 FL (87-102); Mean Platelet Volume 10.4 FL (9.6-12.0); Monocytes # 1.7 10*3/uL (0.11-0.8); Monocytes % 6.4 % (1.7-12.7); Neutrophils % 85.5 % (38.7-73.9); Platelet Count 249 T/CUMM (130-400); Red Blood Count 4.44 MC/CUMM (3.8-5.5); Red Cell Distribution Width 13.1 % (9.3-17.3); White Blood Count 26.8 T/CUMM (4-12)
[2022-10-16 12:52] LABS: Alanine Aminotransferase 22 U/L (13-56); Albumin 2.5 G/DL (3.4-5.0); Alkaline Phosphatase 226 U/L (45-117); Aspartate Amino Transferase 19 U/L (0-37); Bilirubin,Total < 0.39 MG/DL (0.20-1.00); Blood Urea Nitrogen 22 MG/DL (7-18); Calcium 8.3 MG/DL (8.5-10.1); Carbon Dioxide 23 MMOL/L (21-32); Chloride 101 MMOL/L (98-107); Osmolality,Calculated 295.2 MOS/KG (273-304); Potassium 4.6 MMOL/L (3.5-5.1); Sodium 134 MMOL/L (136-145); Total Protein 7.3 G/DL (6.4-8.2)
[2022-10-16 12:55] LABS: Glucose 544 MG/DL (74-106)
[2022-10-16 13:24] LABS: Band Neutrophils 12 % (0-10); Lymphocytes 5 % (20-55); Platelet Estimate Normal; Total Cells Counted 100
[2022-10-16] MEDS ORDERED: INSULIN LISPRO 100 UNIT/ML SUBCUT STA (14:13)
[2022-10-16] MEDS ORDERED: ONDANSETRON 4 MG/2 ML VIAL IV PRN (14:33)
[2022-10-16] MEDS ORDERED: ACETAMINOPHEN 325 MG TABLET PO PRN (14:33)
[2022-10-16 14:34] LABS: Bilirubin,Urine Negative (Negative); Blood, Urine Negative (Negative); Glucose,Urine (UA) >1000 mg/dL (Negative); Ketones,Urine Negative (Negative); Nitrite,Urine Negative (Negative); Protein,Urine 100 mg/dL (Negative); RBC,Urine 1 /HPF (0-4); Urine Appearance Clear (Clear); Urine Color Yellow (Yellow); Urine Specific Gravity 1.015 (1.001-1.035); Urine Urobilinogen 0.2 eU/dL (<2.0)
[2022-10-16] MEDS ORDERED: ALBUTEROL/IPRATROPIUM 3 ML NEB RESP TX STA (15:38)
[2022-10-16] MEDS ORDERED: FAMOTIDINE 20 MG/2 ML VIAL IV ONE ×2 (15:39→15:55)
[2022-10-16] MEDS ORDERED: ALBUTEROL/IPRATROPIUM 3 ML NEB RESP TX ONE (15:41)
[2022-10-16] MEDS ORDERED: MIDAZOLAM 2 MG/2 ML VIAL ONE (16:47)
[2022-10-16] MEDS ORDERED: LIDOCAINE 2% 5 ML VIAL ONE (16:47)
[2022-10-16] MEDS ORDERED: SEVOFLURANE 1 UNIT/15 MINUTE INH ONE ×4 (16:47→18:11)
[2022-10-16] MEDS ORDERED: DEXAMETHASONE 4 MG/1 ML VIAL ONE (16:47)
[2022-10-16] MEDS ORDERED: fentaNYL 100 MCG/2 ML VIAL ONE (16:47)
[2022-10-16] MEDS ORDERED: ONDANSETRON 4 MG/2 ML VIAL ONE (16:47)
[2022-10-16] MEDS ORDERED: propofoL 200 MG/20 ML VIAL IV ONE (16:47)
[2022-10-16] MEDS ORDERED: ROCURONIUM 50 MG/5 ML VIAL IV ONE (16:47)
[2022-10-16] MEDS ORDERED: SUCCINYLCHOLINE 200 MG/10 ML VIAL ONE (16:47)
[2022-10-16] MEDS ORDERED: KETOROLAC 30 MG/1 ML VIAL ONE (16:47)
[2022-10-16] MEDS ORDERED: PHENYLEPHRINE 1 MG/10 ML SYRINGE IV ONE ×2 (17:10→17:36)
[2022-10-16] MEDS ORDERED: GLUCAGON 1 MG VIAL IM PRN (17:42)
[2022-10-16] MEDS ORDERED: DEXTROSE 10% 250 ML BAG IV PRN (17:42)
[2022-10-16] MEDS ORDERED: ACETAMINOPHEN INJ 1,000 MG/100 ML VIAL IV ONE (18:11)
[2022-10-16] MEDS: INSULIN REGULAR 100 UNIT/ML SUBCUT SCH (23:05)
[2022-10-16] MEDS: PIPERACILLIN/TAZOBACTAM 3,375 MG in SODIUM CHLORIDE 0.9% 100 ML IV SCH (23:05)
[2022-10-17] MEDS: INSULIN REGULAR 100 UNIT/ML SUBCUT SCH ×6 (02:38→23:00)
[2022-10-17] MEDS: PIPERACILLIN/TAZOBACTAM 3,375 MG in SODIUM CHLORIDE 0.9% 100 ML IV SCH ×3 (05:33→22:07)
[2022-10-17 05:53] LABS: Basophils # 0.1 10*3/uL (0.0-0.2); Basophils % 0.6 % (0.0-0.8); Eosinophils # 0.2 10*3/uL (0.0-0.87); Eosinophils % 0.9 % (0.00-10.9); Hematocrit 38.2 VOL% (35.7-47.0); Hemoglobin 12.6 GM/DL (12.0-16.0); Immature Granulocytes % 1.3 %; Immature Granulocytes Absolute 0.28 #; Lymphocytes # 3.1 10*3/uL (1.4-4.0); Lymphocytes % 14.2 % (21.3-54.2); Mean Platelet Volume 10.6 FL (9.6-12.0); Monocytes # 1.2 10*3/uL (0.11-0.8); Monocytes % 5.7 % (1.7-12.7); Neutrophils % 77.3 % (38.7-73.9); Platelet Count 256 T/CUMM (130-400); Red Blood Count 3.94 MC/CUMM (3.8-5.5); Red Cell Distribution Width 13.2 % (9.3-17.3); White Blood Count 21.8 T/CUMM (4-12)
[2022-10-17 05:58] LABS: Calcium 8.2 MG/DL (8.5-10.1); Osmolality,Calculated 291.8 MOS/KG (273-304)
[2022-10-17 06:35] LABS: Anisocytosis Slight; Band Neutrophils 1 % (0-10); Eosinophils 1 % (0-10); Lymphocytes 18 % (20-55); Macrocytosis Slight; Platelet Estimate Normal; Total Cells Counted 100
[2022-10-17] MEDS: DEXTROSE 5% LACTATED RINGERS 1,000 ML IV SCH ×3 (07:17→19:26)
[2022-10-17] MEDS ORDERED: VANCOMYCIN INJ 1,000 MG in SODIUM CHLORIDE 0.9% 250 ML IV SCH (08:00)
[2022-10-17] MEDS: PANTOPRAZOLE 40 MG TABLET PO SCH (08:32)
[2022-10-17] MEDS: VANCOMYCIN INJ 2,000 MG in SODIUM CHLORIDE 0.9% 500 ML IV SCH ×2 (08:33→22:07)
[2022-10-17] MEDS ORDERED: MORPHINE 2 MG/1 ML SYRINGE IV PRN (12:18)
[2022-10-17] MEDS ORDERED: CETIRIZINE 10 MG TABLET PO PRN (21:13)
[2022-10-17] MEDS ORDERED: POLYETHYLENE GLYCOL POWDER 17 GM PACK PO PRN (21:13)
[2022-10-17] MEDS ORDERED: HYDROmorphone 1 MG/1 ML SYRINGE IV PRN (21:56)
[2022-10-17] MEDS: oxyCODONE/ACETAMINOPHEN 5-325 MG TABLET PO PRN (22:06)
[2022-10-18] MEDS: DEXTROSE 5% LACTATED RINGERS 1,000 ML IV SCH ×2 (02:12→19:46)
[2022-10-18 05:03] LABS: Basophils # 0.2 10*3/uL (0.0-0.2); Basophils % 0.9 % (0.0-0.8); Eosinophils # 0.4 10*3/uL (0.0-0.87); Eosinophils % 2.2 % (0.00-10.9); Hematocrit 40.2 VOL% (35.7-47.0); Hemoglobin 13.3 GM/DL (12.0-16.0); Immature Granulocytes % 2.2 %; Immature Granulocytes Absolute 0.37 #; Lymphocytes # 2.3 10*3/uL (1.4-4.0); Lymphocytes % 13.7 % (21.3-54.2); Mean Corpuscular HGB Conc 33.1 GM/DL (32-36); Mean Corpuscular Volume 97.1 FL (87-102); Mean Platelet Volume 10.3 FL (9.6-12.0); Monocytes % 6.3 % (1.7-12.7); Neutrophils % 74.7 % (38.7-73.9); Platelet Count 304 T/CUMM (130-400); Red Blood Count 4.14 MC/CUMM (3.8-5.5); Red Cell Distribution Width 13.2 % (9.3-17.3); White Blood Count 16.5 T/CUMM (4-12)
[2022-10-18 05:24] LABS: Alanine Aminotransferase 21 U/L (13-56); Alkaline Phosphatase 178 U/L (45-117); Aspartate Amino Transferase 20 U/L (0-37); Bilirubin,Total < 0.39 MG/DL (0.20-1.00); Blood Urea Nitrogen 15 MG/DL (7-18); Calcium 8.4 MG/DL (8.5-10.1); Carbon Dioxide 20 MMOL/L (21-32); Chloride 112 MMOL/L (98-107); Glucose 293 MG/DL (74-106); Osmolality,Calculated 294.1 MOS/KG (273-304); Potassium 4.1 MMOL/L (3.5-5.1); Sodium 142 MMOL/L (136-145); Total Protein 6.8 G/DL (6.4-8.2)
[2022-10-18] MEDS: LEVOTHYROXINE 100 MCG TABLET PO SCH (06:11)
[2022-10-18] MEDS: PIPERACILLIN/TAZOBACTAM 3,375 MG in SODIUM CHLORIDE 0.9% 100 ML IV SCH ×3 (06:11→23:49)
[2022-10-18] MEDS ORDERED: ONDANSETRON 4 MG/2 ML VIAL ONE (06:47)
[2022-10-18] MEDS ORDERED: propofoL 200 MG/20 ML VIAL IV ONE (06:47)
[2022-10-18] MEDS ORDERED: LIDOCAINE 2% 5 ML VIAL ONE (06:47)
[2022-10-18] MEDS ORDERED: fentaNYL 100 MCG/2 ML VIAL ONE ×2 (06:48→12:02)
[2022-10-18] MEDS ORDERED: MIDAZOLAM 2 MG/2 ML VIAL ONE (06:48)
[2022-10-18] MEDS ORDERED: IPRATROPIUM 500 MCG/2.5 ML NEB RESP TX ONE (07:00)
[2022-10-18] MEDS ORDERED: FAMOTIDINE 20 MG TABLET PO ONE (07:00)
[2022-10-18] MEDS ORDERED: hydrALAZINE 20 MG/1 ML VIAL IV PRN (08:00)
[2022-10-18] MEDS: LACTATED RINGERS 1,000 ML IV SCH ×2 (08:14→20:41)
[2022-10-18] MEDS: INSULIN REGULAR 100 UNIT/ML SUBCUT SCH ×4 (08:53→20:47)
[2022-10-18] MEDS: CYCLOBENZAPRINE 10 MG TABLET PO SCH ×3 (08:54→20:48)
[2022-10-18] MEDS: carBAMazepine 200 MG TABLET PO SCH ×5 (08:55→20:48)
[2022-10-18] MEDS: PANTOPRAZOLE 40 MG TABLET PO SCH (08:55)
[2022-10-18] MEDS: PREGABALIN 75 MG CAPSULE PO SCH ×3 (08:55→20:48)
[2022-10-18] MEDS: VANCOMYCIN INJ 2,000 MG in SODIUM CHLORIDE 0.9% 500 ML IV SCH ×2 (08:55→20:45)
[2022-10-18] MEDS ORDERED: VALSARTAN 80 MG TABLET PO SCH (09:00)
[2022-10-18] MEDS ORDERED: ERGOCALCIFEROL 50,000 UNIT CAPSULE PO SCH (09:00)
[2022-10-18] MEDS ORDERED: hydroCHLOROthiazide 12.5 MG CAPSULE PO SCH (09:00)
[2022-10-18] MEDS ORDERED: SEVOFLURANE 1 UNIT/15 MINUTE INH ONE (11:54)
[2022-10-18] MEDS ORDERED: ALBUTEROL/IPRATROPIUM 3 ML NEB RESP TX ONE ×2 (12:12→12:13)
[2022-10-18] MEDS: oxyCODONE/ACETAMINOPHEN 5-325 MG TABLET PO PRN ×3 (13:05→21:03)
[2022-10-18] MEDS: NICOTINE 14 MG/24 HR PATCH TRANSDERM SCH (16:32)
[2022-10-18] MEDS: VALSARTAN 80 MG TABLET PO SCH (20:48)
[2022-10-18] MEDS ORDERED: ASPIRIN EC 81 MG TABLET PO SCH (21:00)
[2022-10-18] MEDS ORDERED: SIMVASTATIN 20 MG TABLET PO SCH (21:00)
[2022-10-18] MEDS ORDERED: INSULIN DETEMIR 100 UNIT/ML SUBCUT SCH (21:00)
[2022-10-18] MEDS ORDERED: SERTRALINE 100 MG TABLET PO SCH (21:00)
[2022-10-18] MEDS: INSULIN GLARGINE 100 UNIT/ML SUBCUT SCH (21:49)
[2022-10-19] MEDS: LEVOTHYROXINE 100 MCG TABLET PO SCH (05:50)
[2022-10-19] MEDS: LACTATED RINGERS 1,000 ML IV SCH ×2 (05:50→12:20)
[2022-10-19] MEDS: PIPERACILLIN/TAZOBACTAM 3,375 MG in SODIUM CHLORIDE 0.9% 100 ML IV SCH ×2 (05:50→13:24)
[2022-10-19 08:19] LABS: Basophils # 0.2 10*3/uL (0.0-0.2); Basophils % 1.1 % (0.0-0.8); Eosinophils # 0.4 10*3/uL (0.0-0.87); Eosinophils % 2.3 % (0.00-10.9); Hemoglobin 12.4 GM/DL (12.0-16.0); Immature Granulocytes % 2.5 %; Lymphocytes # 1.9 10*3/uL (1.4-4.0); Lymphocytes % 11.9 % (21.3-54.2); Mean Corpuscular HGB Conc 31.8 GM/DL (32-36); Mean Corpuscular Volume 97.3 FL (87-102); Monocytes % 6.1 % (1.7-12.7); Neutrophils % 76.1 % (38.7-73.9); Platelet Count 319 T/CUMM (130-400); Red Blood Count 4.01 MC/CUMM (3.8-5.5); Red Cell Distribution Width 13.3 % (9.3-17.3); White Blood Count 16.3 T/CUMM (4-12)
[2022-10-19 08:35] LABS: Bilirubin,Total 0.4 MG/DL (0.20-1.00); Calcium 8.3 MG/DL (8.5-10.1); Osmolality,Calculated 293.1 MOS/KG (273-304); Potassium 4.2 MMOL/L (3.5-5.1); Total Protein 6.6 G/DL (6.4-8.2)
[2022-10-19] MEDS ORDERED: DAPAGLIFLOZIN 5 MG TABLET PO SCH (09:00)
[2022-10-19] MEDS: carBAMazepine 200 MG TABLET PO SCH ×2 (09:12→13:29)
[2022-10-19] MEDS: CYCLOBENZAPRINE 10 MG TABLET PO SCH ×2 (09:12→15:19)
[2022-10-19] MEDS: PANTOPRAZOLE 40 MG TABLET PO SCH (09:12)
[2022-10-19] MEDS: PREGABALIN 75 MG CAPSULE PO SCH ×2 (09:12→15:19)
[2022-10-19] MEDS: INSULIN REGULAR 100 UNIT/ML SUBCUT SCH ×2 (09:13→13:24)
[2022-10-19] MEDS: NICOTINE 14 MG/24 HR PATCH TRANSDERM SCH (09:13)
[2022-10-19] MEDS: INSULIN GLARGINE 100 UNIT/ML SUBCUT SCH (09:14)
[2022-10-19] MEDS: VALSARTAN 80 MG TABLET PO SCH (09:24)
[2022-10-19] MEDS: oxyCODONE/ACETAMINOPHEN 5-325 MG TABLET PO PRN (09:24)
[2022-10-19] MEDS ORDERED: SODIUM HYPOCHLORITE 0.25% IRRIG 473 ML BOTTLE TOP SCH (09:30)
[2022-10-19] MEDS: VANCOMYCIN INJ 2,000 MG in SODIUM CHLORIDE 0.9% 500 ML IV SCH (10:19)
[2022-10-19] MEDS ORDERED: MAGNESIUM SULF RIDER 4 GM/100 ML PREMIX IV ONE (11:02)
[2022-10-19 12:10] VITALS: BP 177/63
[2022-10-19] MEDS ORDERED: CLINDAMYCIN 300 MG CAPSULE PO SCH (13:00)
== END 2022-10-19 16:14 | disposition home health service (06) | DRG 264 ==
LOC: N.ED 11:41 → N.TELEN 12:40 → N.EDINP 14:33 → N.TELEN 19:27
PROVIDERS: ADMIT Surgery; ATTEND Surgery